=== PATIENT | female | born 1965 | race African-American/Black ===

== ENCOUNTER 2021-03-22 12:52 | Outpatient (REF) | payer MEDICARE, MEDICAID, SELFPAY | END 2021-03-22 12:53 | disposition home or self-care (01) | LOC: HO.LNP 12:52 | PROVIDERS: Visit Provider Internal Medicine Medical Oncology | DX: L02.91 Cutaneous abscess, unspecified (principal) | CPT/HCPCS: 87071; 87205 ==

== ENCOUNTER 2022-04-26 12:19 | Outpatient (REF) | payer MEDICARE, MEDICAID, SELFPAY ==
[2022-04-26 12:41] LABS: MANUAL DIFF FLAG NO
[2022-04-26 13:40] LABS: Basophils Absolute Auto 0.1 X10*3/uL (0.0-0.2); Basophils Percent Auto 0.7 % (0-2); Eosinophils Absolute Auto 0.1 X10*3/uL (0.0-0.4); Eosinophils Percent Auto 1.4 % (0-4); Hematocrit 45.5 % (37.0-47.0); Hemoglobin 14.5 g/dl (12.0-16.0); Imm Gran Abs Auto 0.03 X10*3/uL (0.00-0.03); Imm Gran Pct Auto 0.3 % (0.0-0.4); Lymphocytes Absolute Auto 3.2 X10*3/uL (1.2-4.9); Lymphocytes Percent Auto 35.5 % (20-40); Mean Corpuscular HGB Conc 31.9 g/dl (31.0-35.0); Mean Corpuscular Hemoglobin 25.8 pg (27.0-33.0); Mean Corpuscular Volume 81.1 fL (80.0-98.0); Mean Platelet Volume 12.4 fL (9.4-12.3); Monocytes Absolute Auto 0.8 X10*3/uL (0.1-1.2); Monocytes Percent Auto 8.2 % (2-11); Neutrophils Absolute Auto 4.9 x10*3/uL (2.0-8.3); Neutrophils Percent Auto 53.9 % (45-73); Platelet Count 268 X10*3/uL (160-400); Red Blood Count 5.61 X10*6/uL (4.20-5.50); Red Cell Distribution Width 15.2 % (11.0-16.0); White Blood Count 9.1 X10*3/uL (4.8-10.8)
[2022-04-26 14:03] LABS: Alanine Aminotransferase 141 U/L (0-31); Albumin Level 4.1 g/dL (3.5-5.0); Alkaline Phosphatase 549 U/L (39-117); Anion Gap 17 (12-20); Aspartate Amino Transferase 107 U/L (5-31); Bilirubin Total 0.3 mg/dL (0.0-1.0); Blood Urea Nitrogen 14 mg/dL (9-16); Calcium 10.2 mg/dL (8.4-10.2); Carbon Dioxide 26 mmol/L (22-29); Chloride 103 mmol/L (96-108); Cholesterol 359 mg/dL; Estimated Glomerular Filt Rate > 60; Glucose Random 83 mg/dL (60-115); HDL Cholesterol 99 mg/dL; LDL Cholesterol Calculated 227 mg/dl; Lactate Dehydrogenase 212 U/L (122-220); Potassium 3.8 mmol/L (3.3-5.1); Sodium 142 mmol/L (135-145); Total Protein 7.7 g/dL (6.5-8.0); Triglycerides 166 mg/dL
[2022-04-26 14:19] LABS: Erythrocyte Sedimentation Rate 34 MM/HR (0-20)
[2022-04-26 14:36] LABS: Gamma Glutamyl Transpeptidase 2104 U/L (7-33)
== END 2022-04-26 12:20 | disposition home or self-care (01) ==
LOC: HO.LAB 12:19
PROVIDERS: PCP Internal Medicine Medical Oncology; Visit Provider Internal Medicine Medical Oncology
DX: I10 Essential (primary) hypertension (principal); E78.5 Hyperlipidemia, unspecified; E66.9 Obesity, unspecified; K75.9 Inflammatory liver disease, unspecified
CPT/HCPCS: 36415; 80053; 80061; 82977; 83615; 85025; 85652; 87071; 87205

== ENCOUNTER → 2022-06-21 11:03 | Outpatient (BNVA) | payer MEDICARE, MEDICAID, SELFPAY | PROVIDERS: PCP Internal Medicine Medical Oncology; Visit Provider Internal Medicine | DX: R79.89 Other specified abnormal findings of blood chemistry (principal) | CPT/HCPCS: 99202 ==

== ENCOUNTER 2022-07-06 10:02 | Outpatient (REF) | payer MEDICARE, MEDICAID, SELFPAY ==
--- NOTE | ~2022-07-06 | US_ITS ---
EXAMINATION: US ABDOMEN COMPLETE CLINICAL INFORMATION: Other specified abnormal findings of blood chemistry. COMPARISON: None TECHNIQUE: Real-time imaging of the abdominal viscera. FINDINGS: PANCREAS: The pancreas is obscured by overlying gas. ABDOMINAL AORTA: The proximal abdominal aorta is of normal caliber. The mid and distal segment is not seen.. INFERIOR VENA CAVA: Visualized portions are normal. LIVER: The liver is enlarged measuring 14 cm with diffuse increased heterogeneous coarse echogenicity and nodular contour No focal hepatic lesion. There is no intrahepatic biliary duct dilatation seen. GALLBLADDER: Surgically absent. COMMON BILE DUCT: Normal in caliber measuring 0.4 cm in diameter. RIGHT KIDNEY: Normal. No hydronephrosis. No renal calculi or focal parenchymal lesions. The kidney measures 10.5 cm in maximum dimension. LEFT KIDNEY: Normal. No hydronephrosis. No renal calculi or focal parenchymal lesions. The kidney measures 9.7 cm in maximum dimension. SPLEEN: Normal. The spleen measures 9.8 cm in maximum dimension. FREE FLUID: None. US/US abdomen complete IMPRESSION: 1. Coarse echogenic nodular liver without any focal lesion. 2. The gallbladder has been surgically removed. 3. Rest of the abdominal ultrasound is unremarkable. 4. All the urinary in [place]
[2022-07-06 10:29] LABS: MANUAL DIFF FLAG NO
[2022-07-06 10:55] LABS: Basophils Percent Auto 0.4 % (0-2); Eosinophils Absolute Auto 0.1 X10*3/uL (0.0-0.4); Eosinophils Percent Auto 0.8 % (0-4); Hematocrit 45.9 % (37.0-47.0); Hemoglobin 14.7 g/dl (12.0-16.0); Imm Gran Abs Auto 0.02 X10*3/uL (0.00-0.03); Imm Gran Pct Auto 0.2 % (0.0-0.4); Lymphocytes Absolute Auto 3.5 X10*3/uL (1.2-4.9); Lymphocytes Percent Auto 38.4 % (20-40); Mean Corpuscular Hemoglobin 26.2 pg (27.0-33.0); Mean Corpuscular Volume 81.8 fL (80.0-98.0); Mean Platelet Volume 11.6 fL (9.4-12.3); Monocytes Absolute Auto 0.5 X10*3/uL (0.1-1.2); Monocytes Percent Auto 5.6 % (2-11); Neutrophils Absolute Auto 4.9 x10*3/uL (2.0-8.3); Neutrophils Percent Auto 54.6 % (45-73); Platelet Count 249 X10*3/uL (160-400); Red Blood Count 5.61 X10*6/uL (4.20-5.50)
[2022-07-06 10:59] LABS: Prothrombin Time 11.2 SEC (10.0-13.1)
[2022-07-06 11:18] LABS: Estimated Average Glucose 146 mg/dL; Hemoglobin A1c % 6.7 %
[2022-07-06 11:43] LABS: Alanine Aminotransferase 126 U/L (0-31); Albumin Level 4.1 g/dL (3.5-5.0); Alkaline Phosphatase 535 U/L (39-117); Anion Gap 15 (12-20); Aspartate Amino Transferase 78 U/L (5-31); Bilirubin Total 0.4 mg/dL (0.0-1.0); Blood Urea Nitrogen 10 mg/dL (9-16); Calcium 9.7 mg/dL (8.4-10.2); Carbon Dioxide 27 mmol/L (22-29); Chloride 103 mmol/L (96-108); Estimated Glomerular Filt Rate > 60; Gamma Glutamyl Transpeptidase 2011 U/L (7-33); Glucose Fasting 110 mg/dL (60-99); Sodium 141 mmol/L (135-145); Total Protein 7.4 g/dL (6.5-8.0)
[2022-07-06 11:45] LABS: Alanine Aminotransferase 126 U/L (0-31); Albumin Level 4.1 g/dL (3.5-5.0); Alkaline Phosphatase 533 U/L (39-117); Anion Gap 14 (12-20); Aspartate Amino Transferase 77 U/L (5-31); Bilirubin Direct 0.2 mg/dL (0.0-0.5); Bilirubin Total 0.4 mg/dL (0.0-1.0); Blood Urea Nitrogen 10 mg/dL (9-16); Calcium 9.7 mg/dL (8.4-10.2); Carbon Dioxide 28 mmol/L (22-29); Chloride 103 mmol/L (96-108); Cholesterol 319 mg/dL; Estimated Glomerular Filt Rate > 60; Glucose Random 112 mg/dL (60-115); HDL Cholesterol 91 mg/dL; Iron 124 mcg/dL (30-160); LDL Cholesterol Calculated 211 mg/dl; Percent Iron Saturation 34 % (15-50); Potassium 4.1 mmol/L (3.3-5.1); Sodium 141 mmol/L (135-145); Total Iron Binding Capacity 366 mcg/dL (228-428); Total Protein 7.4 g/dL (6.5-8.0); Triglycerides 87 mg/dL; Unsaturated Iron Binding 242 ug/dL
[2022-07-06 12:02] LABS: HBS Num1 6.96 mIU/mL (0-7.99); HBc Num1 8.24 S/CO (0.00-0.79); HBsAGNum1 0.19 S/CO (0.00-0.99); Hepatitis B Surface Antigen Negative (Negative); ~HepC Num1 0.05 S/CO (0.00-0.79); ~Hepatitis B Surface Antibody NONREACTIVE (Nonreactive); ~Hepatitis C Antibody Nonreactive (Nonreactive)
[2022-07-06 12:13] LABS: Ferritin 246 ng/mL (10-250)
[2022-07-06 14:28] LABS: Hepatitis A Antibody IgG REACTIVE (Nonreactive); ~Hepatitis A Antibody IgG 10.91 S/CO (0.00-0.99)
[2022-07-06 14:29] LABS: HBc Num2 8.45 S/CO; HBc Num3 8.58 S/CO; Hepatitis B Core Antibody Reactive (Nonreactive)
[2022-07-07 22:21] LABS: Hepatitis B Core Antibody IgM NON-REACTIVE (NON-REACTIVE)
[2022-07-08 13:32] LABS: Immunoglobulin A 233 mg/dL (47-310)
[2022-07-08 22:02] LABS: Transglutaminase IgA <1.0 U/mL
[2022-07-11 08:32] LABS: Smooth Muscle Antibody <20 U (<20)
[2022-07-12 08:06] LABS: Mitochondrial Antibodies NEGATIVE (NEGATIVE)
[2022-07-12 11:07] LABS: Anti Nuclear Antibody Screen NEGATIVE (NEGATIVE)
[2022-07-12 23:06] LABS: Liver Kidney Microsomal Ab <=20.0 U (<=20.0)
== END 2022-07-06 10:03 | disposition home or self-care (01) ==
LOC: HO.US 10:02
PROVIDERS: Absent Provider Internal Medicine Medical Oncology; PCP Internal Medicine Medical Oncology; Visit Provider Internal Medicine
DX: R79.89 Other specified abnormal findings of blood chemistry (principal); I10 Essential (primary) hypertension; E66.01 Morbid (severe) obesity due to excess calories; K75.9 Inflammatory liver disease, unspecified
CPT/HCPCS: 36415; 76700; 80053; 80061; 82248; 82728; 82784; 82977; 83036; 83540; 85025; 85610; 86015; 86038; 86039; 86255; 86256; 86364; 86376; 86704; 86705; 86706; 86708; 86803; 87340

== ENCOUNTER 2022-11-28 13:30 | Outpatient (REF) | payer MEDICARE, MEDICAID, SELFPAY ==
[2022-11-28 14:38] LABS: Hematocrit 46.2 % (37.0-47.0); Hemoglobin 14.9 g/dl (12.0-16.0); Mean Corpuscular HGB Conc 32.3 g/dl (31.0-35.0); Mean Corpuscular Hemoglobin 26.6 pg (27.0-33.0); Mean Corpuscular Volume 82.4 fL (80.0-98.0); Mean Platelet Volume 11.9 fL (9.4-12.3); Platelet Count 245 X10*3/uL (160-400); Red Blood Count 5.61 X10*6/uL (4.20-5.50); Red Cell Distribution Width 14.9 % (11.0-16.0); White Blood Count 9.2 X10*3/uL (4.8-10.8)
[2022-11-28 14:43] LABS: INTERNATIONAL NORM RATIO 0.9 (0.9-1.1); Prothrombin Time 10.8 SEC (10.0-13.1)
[2022-11-28 15:05] LABS: Alanine Aminotransferase 122 U/L (0-31); Albumin Level 4.1 g/dL (3.5-5.0); Alkaline Phosphatase 533 U/L (39-117); Aspartate Amino Transferase 74 U/L (5-31); Bilirubin Direct 0.1 mg/dL (0.0-0.5); Bilirubin Total 0.4 mg/dL (0.0-1.0); Total Protein 7.2 g/dL (6.5-8.0)
== END 2022-11-28 13:31 | disposition home or self-care (01) ==
LOC: HO.LAB 13:30
PROVIDERS: PCP Internal Medicine Medical Oncology; Visit Provider Internal Medicine
DX: E66.01 Morbid (severe) obesity due to excess calories (principal); I10 Essential (primary) hypertension; F17.210 Nicotine dependence, cigarettes, uncomplicated; R79.89 Other specified abnormal findings of blood chemistry; Z68.43 Body mass index [BMI] 50.0-59.9, adult
CPT/HCPCS: 36415; 80076; 85027; 85610; 99212

== ENCOUNTER 2023-02-27 10:11 | Outpatient (AMB) | payer MEDICARE, MEDICAID, SELFPAY ==
--- NOTE | 2023-02-27 10:15 | MHC.OFFVIS ---
Intake Vital Signs 02/27/23 10:17 Height 5 ft Weight 268 lb 15.423 oz BMI 52.5 BP 150/73 H Blood Pressure Location Lt radial Position Sitting Pulse 72 Intake Visit Reasons: 3 Month Follow Up Intake Note: Eliana presents in the office as a 3 month follow up today. CC: No concerns. Allergies No Known Allergies Allergy (Verified 02/27/23 10:17) HPI HPI Comments History of Present Illness Details This is a 57-year-old female with past medical history of morbid obesity, hypertension, family history of breast cancer, who presents to the office for follow up of elevated LFTs. 06/21/22: History obtained from the patient as well as the records from [facility]. Patient was seen at [facility] in 2019 for elevated LFTs at that time as well with dominant alk-phos elevation. It appears that patient then lost to follow-up. She also underwent a screening colonoscopy which was normal (cecal polyp on past showed normal mucosa, no adenoma) and was given a 10 year interval. Today, she comes and with no gastrointestinal complaints include abdominal pain, nausea, vomiting, bloating, increased abdominal distention, leg swelling, shortness of breath, rash or joint pains. Patient does not drink alcohol. No history of IV drug use. Smokes almost a pack a day. She does not report any family history of liver disease or liver cancer, iron overload, early pulmonary disease, early in neuropsychiatric illness, or autoimmune diseases. She takes Aleve on off for generalized body aches. She also drinks cleansing teas at least once a week, and has been doing this for years. She is not aware of the ingredients of the tea. 11/28/22: Missed last two follow ups due to transport issues. Today, no gastrointestinal complaints to include abd pain, N,V, change in bowel habits. Labs and US abd results reviewed and negative for chronic hep, autoimmune hepatitis, PBC, PSC, iron overload. US abd suggestive of advanced fibrosis/cirrhosis. Pt not able to do MRI despite ativan due to severe claustrophobia. 02/27/23: Reports had her MRI done with [facility] in December. Report reviewed - consistent with cirrhosis due to fatty infiltration. Also showed duodenal nodules measuring up to 1.1 cm in size. Pt currently has no gastrointestinal complaints. [facility] Medical History Hypertension Obesity, Class III, BMI 40-49.9 (morbid obesity) Surgical History Hx of colonoscopy Family History Father No problems noted. Mother Breast cancer HTN (hypertension) Social History Alcohol intake: never Patient Tobacco Use Status: Current everyday Tobacco user Cigarettes Per Day: 21 Physical Exam Vital Signs: Last Vital Signs Pulse 72 02/27/23 10:17 BP 150/73 H 02/27/23 10:17 BMI result Body Mass Index 52.5 Gen appear: NAD, with obesity HEENT: nonicteric, no cervical lymphadenopathy Chest: CTA CVS: Regular S1/S2 Abd: soft, nontender, nondistended, bowel sounds + Ext: no peripheral edema Neuro: A/Ox3, noted to move all extremities spontaneously Psych: interacting appropriately Assessment & Plan Assessment & Plan (1) Elevated LFTs: Code(s): R79.89 - Other specified abnormal findings of blood chemistry (2) Obesity, Class III, BMI 40-49.9 (morbid obesity): Code(s): E66.01 - Morbid (severe) obesity due to excess calories (3) Cirrhosis: Code(s): K74.60 - Unspecified cirrhosis of liver (4) Duodenal nodule: Code(s): K31.89 - Other diseases of stomach and duodenum Plan Longstanding history of elevated LFTs, with alk-phos predominance going back to at least 2007 on my review. MRI confirms cirrhosis, that was also suggested on US done recently. 2/2 MAFLD/HILL. This was extensively reviewed with the pt who initially said she was never informed of abnormal liver test, and then when she was reminded on initialy work up done at [facility] in 2019, said before 5 years she was not informed of any liver abnormality and has been healthy overall. We reviewed the natural evolution and progression of liver disease. I educated her that goal of management will be to avoid progression to decompensated liver cirrhosis, which in her case would be strict control of metabolic risk factors and weight loss of at least 10% total body weight. 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 Pt was also noted to have duodenal nodules on the MRI. Will shcedule EGD for both i) eval of duodenal nodules as well as ii) variceal screening. Pt had her colo in 2019 and was given a 10 year interval. - EGD to be booked as above. - Repeat LFTs and INR in 3 months (6 months from last labs) - Repeat US abd in Nov (6 months from last MRI) - Weight loss recommended as above - [facility] [employer] referral placed. Follow up after scope. Orders: Referrals Medical Nutrition Therapy Referral E66.01 - Morbid (severe) obesity due to excess calories Coding Level of Care Code Est Pt Level 5 (29840) Diagnoses Elevated LFTs R79.89 Obesity, Class III, BMI 40-49.9 (morbid obesity) E66.01 Cirrhosis K74.60 Duodenal nodule K31.89
[2023-02-27 10:17] VITALS: BP 150/73; PULSE 72; BMI 52.5
== END 2023-02-27 11:54 | disposition home or self-care (01) ==
LOC: HO.HGI 10:11
PROVIDERS: PCP Internal Medicine Medical Oncology; Visit Provider Internal Medicine
DX: R79.89 Other specified abnormal findings of blood chemistry (principal); E66.01 Morbid (severe) obesity due to excess calories; K74.60 Unspecified cirrhosis of liver; K31.89 Other diseases of stomach and duodenum
CPT/HCPCS: 99213

== ENCOUNTER → 2023-02-27 10:11 | Outpatient (BNVA) | payer MEDICARE, MEDICAID, SELFPAY | PROVIDERS: PCP Internal Medicine Medical Oncology; Visit Provider Internal Medicine | DX: R79.89 Other specified abnormal findings of blood chemistry (principal); K74.60 Unspecified cirrhosis of liver; K31.89 Other diseases of stomach and duodenum; E66.01 Morbid (severe) obesity due to excess calories; Z68.43 Body mass index [BMI] 50.0-59.9, adult | CPT/HCPCS: 99212 ==

== ENCOUNTER 2024-05-15 10:03 | Outpatient (REF) | payer MEDICARE, MEDICAID, SELFPAY ==
--- NOTE | ~2024-05-15 | XR_ITS ---
EXAMINATION: XR FOREARM, LEFT CLINICAL INFORMATION: Left arm pain COMPARISON: None available. TECHNIQUE: AP and lateral views of the left forearm were obtained. FINDINGS: The bones and soft tissues are normal. No fracture. Imaged portions of the elbow and wrist are unremarkable. XR/XR forearm LT 2V IMPRESSION: Normal left forearm. Electronically signed by: Jarek Kraus MD 06/17/2024 02:54 PM EDT RP
--- NOTE | ~2024-05-15 | XR_ITS ---
EXAMINATION: XR ELBOW, LEFT CLINICAL INFORMATION: Left arm pain COMPARISON: None available. TECHNIQUE: Four views of the left elbow. FINDINGS: The bones and soft tissues are normal. No fracture or joint effusion. Alignment is anatomic. Joint spaces are maintained. XR/XR elbow LT min 3V IMPRESSION: Normal left elbow. Electronically signed by: Jarek Kraus MD 06/17/2024 02:54 PM EDT RP
--- NOTE | ~2024-05-15 | XR_ITS ---
EXAMINATION: XR SHOULDER, LEFT CLINICAL INFORMATION: Left arm pain. COMPARISON: None available. TECHNIQUE: Four views of the left shoulder. FINDINGS: The bones and soft tissues are normal. No fracture. Glenohumeral and acromioclavicular alignment is anatomic with normal joint space. No abnormal soft tissue calcifications. XR/XR shoulder LT min 2V IMPRESSION: Normal left shoulder. Electronically signed by: Jarek Kraus MD 06/17/2024 02:55 PM EDT RP
--- NOTE | ~2024-05-15 | XR_ITS ---
EXAMINATION: XR HUMERUS, LEFT CLINICAL INFORMATION: Left arm pain COMPARISON: None available. TECHNIQUE: AP and lateral views of the left humerus. FINDINGS: The bones and soft tissues are normal. No fracture. Imaged portions of the shoulder and elbow are unremarkable. XR/XR humerus LT IMPRESSION: Normal left humerus. Electronically signed by: Jarek Kraus MD 06/17/2024 02:53 PM EDT
--- NOTE | ~2024-05-15 | XR_ITS ---
EXAMINATION: XR HAND/WRIST, LEFT CLINICAL INFORMATION: Left arm pain COMPARISON: None available. TECHNIQUE: PA, lateral, oblique, and scaphoid views of the left hand and wrist. FINDINGS: The bones and soft tissues are normal. No fracture. Alignment is anatomic. Joint spaces are maintained. No erosions or soft tissue calcifications. XR/XR hand wrist LT IMPRESSION: Normal radiographs of the hand and wrist. Electronically signed by: Jarek Kraus MD 06/17/2024 02:56 PM EDT
== END 2024-05-15 10:04 | disposition home or self-care (01) ==
LOC: HO.XRAY 10:03
PROVIDERS: PCP Internal Medicine Medical Oncology; Visit Provider Internal Medicine Medical Oncology
DX: M79.602 Pain in left arm (principal)
CPT/HCPCS: 73030; 73060; 73080; 73090; 73110; 73130

== ENCOUNTER 2025-08-04 14:52 | Outpatient (REF) | payer MEDICARE, MEDICAID, SELFPAY ==
--- OUTSIDE RECORDS SUMMARY | 2024-11-25 04:30 | XMS_ITS ---
Author Organization David Dinh III, MD Address [address] [address] Care Team Providers Care Boarding House Cook Name Role Phone Dr. David Dinh III Primary Care Provider Allergies Allergen (clinical drug ingredient) Drug/Non Drug Allergy documented on EMR Reaction Allergy Type Onset Date Status No Known Drug Allergy Unknown Drug Allergy Active Results Component Value Reference Range Notes URINE DIP STICK Reviewed date:11/25/2024 09:28:00 AM Interpretation: Performing Lab: Notes/Report: SG 1.015 1.005 - 1.025 pH 6.5 5.0 - 9.0 ARACELI Negative Negative - NIT Negative Negative - PRO 15 Negative - Trace GLU Negative Negative - KET Negative Negative - UBG 0.2 0.1 - 1.8 KODI Negative 0.2 - 1.3 BLD Negative Negative - Menstrating No GGT Reviewed date:12/03/2024 09:41:49 AM Interpretation: Performing Lab: Notes/Report: Lipid Panel Reviewed date:12/03/2024 09:41:58 AM Interpretation: Performing Lab: Notes/Report: Reason For Referral Reason Consult and Treat Diagnosis 1 Ankle pain (M25.579) Diagnosis 2 Pain in left wrist ( M25.532) Diagnosis 3 Wrist pain, right (M 25.531) Diagnosis 4 Hand pain, left (M79 .642) Diagnosis 5 Hand pain, right (M7 9.641) Diagnosis 6 Osteoporosis (M81.0) Referral Organization David Dinh III, MD Referring Provider First Name David Referring Provider Last Name Fabrizio Referring Provider Speciality Internal M edicine Referred Provider [facility] Referred Provider Specialty Orthopedic S urgery General Notes Kaya Durant 12/02/2024 01:12:56 PM > Referral faxed with progress note, patient has not went and had xr's done, Danny Johannajasmina MC 12/12/2024 09:45:05 AM >Ref/demo/progress note and recent labs faxed again to [facility] pt will call set up appt and call back to let us know when she will be seen, Kaya Durant 12/12/2024 09:55:58 AM > Patient called [facility] in which they stated they are 3 weeks behind next week and have not gotten to the referral and was advised to call back next week., Johanna Delgado CMA 01/20/2025 01:25:51 PM > Patient ended up going to [facility] urgent care on 12/27/2024 and was seen and treated Referral Priority Routine REASON FOR VISIT annual exam Medications Medication SIG (Take, Route, Frequency, Duration) Notes Start Date End Date Status Triamcinolone Acetonide 0.1 % 1 applicat ion Externally Twice a day 04/26/2022 Active Atorvastatin Calcium 20 MG 1 tablet Oral ly Once a day 03/22/2021 Active hydroCHLOROthiazide 25 MG TAKE 1 TABLET BY MOUTH ONCE DAILY IN THE MORNING WITH 8OZ OF ORANGE JUICE Oral Active Omeprazole 20 MG TAKE 1 CAPSULE BY MOUTH ONCE DAILY DIRECTED Orally Once a day Active Social History Tobacco Use: Social History Observation Description Date Details (start date - stop date) Current Smoker NA - NA Sex Assigned At : Social History Observation Description Sex Assigned At Female Tobacco Control (Standard) Question Answer Notes Tobacco use: Current smoker How often do you smoke cigarettes? Every day How many cigarettes a day do you smoke? 6-10 How soon after you wake up d o you smoke your first cigarette? 31-60 minutes Are you interested in quitting? Thinking about q uitting Additional Findings: Tobacco user Light cigarett e smoker (1-9 cigs/day) AUDIT-C (Standard) Question Answer Notes Did you have a drink containing alcohol in the p ast year? No Points 0 Interpretation Negative Problems Problem Type SNOMED Code ICD Code Onset Dates Problem Status W/U Status Risk Notes Problem Ankle pain (043584315) Ankle pain (M25.579) Active confirmed She has been having pain in her [place] ankle for a couple of weeks with weightbearing. There was pain to range of motion of the metatarsal bones. End of the left ankle joint today on the examination. An x-ray was ordered and she was referred to orthopedics. Vital Signs Temperature 97.3 degrees Fahrenheit 11/26/19 25 Blood pressure systolic 139 mm Hg 11/26/19 25 Blood pressure diastolic 79 mm Hg 025 Heart Rate 73 /min 11/25/2024 Height 61 in 11/25/2024 Weight 247 lbs 11/25/2024 BMI 46.67 kg/m2 11/25/2024 Encounters Encounter Location Date Provider Diagnosis David Dinh III, MD [address] [place] [address] [facility] [place] [address] 11/25/2024 David Dinh Other cirrhosis of l iver K74.69 ; Ankle pain M25.579 ; Other and unspecified hyperlipidemia E78.5 ; HTN (hypertension) I10 ; Migraines G43.909 ; Depression F32.9 ; Hidradenitis L73.2 ; Morbid obesity E66.01 ; Tobacco dependence F17.200 and Osteoporosis M81.0 Assessments Encounter Date Diagnosis (ICD Code) Assessment Notes Treat ment Notes Treatment Clinical Notes 11/25/2024 Other cirrhosis of liver (ICD-10 - K74.69) Her synthetic and excretory functions appear to be intact. There was no jaundice. Her liver edge was not palpable. Comprehensive blood work with liver function tests were ordered. We had a long discussion about weight loss. She continues to decline referral to an obesity treatment 11/25/2024 Ankle pain (ICD-10 - M25.579) She has been having pain in her [place] ankle for a couple of weeks with weightbearing. There was pain to range of motion of the metatarsal bones. End of the left ankle joint today on the examination. An x-ray was ordered and she was referred to orthopedics. 11/25/2024 Other and unspecifie d hyperlipidemia (ICD-10 - E78.5) A fasting lipid profile has been ordered. 11/25/2024 HTN (hypertension) (ICD-10 - I10) Her blood pressure is currently stable. She has been compliant with her medication. 11/25/2024 Migraines (ICD-10 - G43.909) She reports no recent migraines. She is taking no medication for this. 11/25/2024 Depression (ICD-10 - F32.9) Her depression is stable and mild she is compliant with her medications. She has been compliant with recent visits to mental health. 11/25/2024 Hidradenitis (ICD-10 - L73.2) The hidradenitis has substantially resolved and is no longer a problem for this patient. 11/25/2024 Morbid obesity (ICD-10 - E66.01) She remains morbidly obese. We discussed her diet. I have recommended aggressive calorie restriction and regular exercise. It is noted that she has lost 11 pounds since her last visit. He was encouraged to continue this. We discussed her weight loss strategy. 11/25/2024 Tobacco dependence (ICD-10 - F17.200) We discussed smoking cessation at length today. She is going to try to cut down by one cigarette per week. 11/25/2024 Osteoporosis (ICD-10 - M81.0) She was continued on her current regimen without change. A bone density has been ordered. Plan Of Treatment Medication Medication Name Sig Start Date Stop Date Notes Triamcinolone Acetonide 0.1 % 1 applicat ion Externally Twice a day 04/26/2022 Atorvastatin Calcium 20 MG 1 tablet Orally Once a day 09/2020 hydroCHLOROthiazide 25 MG TAKE 1 TABLET BY MOUTH ONCE DAILY IN THE MORNING WITH 8OZ OF ORANGE JUICE Oral Omeprazole 20 MG TAKE 1 CAPSULE BY [facility] ONCE DAILY DIRECTED Orally Once a day Pending Test Test Name Order Date PROFILE, FASTING (COMPREHENSIVE METABOLI C) 11/25/2024 CBC w DIFF 11/25/2024 XR HAND LT 11/25/2024 XR HAND RT 11/25/2024 XR ankle LT 2V 11/25/2024 XR wrist LT min 3V 11/25/2024 XR wrist RT min 3V 11/25/2024 Referrals Referral Date Details 11/25/2024 11/25/2024, Consult and Treat, [facility] Next Appt Details Follow Up: 2 Weeks, Reason: Telehealth Provider Name:David Dinh , 08/11/2025 03:00:00 PM, [address] [place] [address] [address], [place], [address], Provider Name:David Dinh , 11/27/2025 09:30:00 AM, [address] [place] [address] [address], [place], [phone], Progress Notes * Eliana KIM LDOB: [birth year] (59 yo F)Acc No.[id number]:11/25/2024 Progress Notes Patient: Eliana MARTIN Provider: Kimberli Dinh MD :1965 A ge:59 Y S ex:Female Date:11/25/2024 Address:[address] [place], [place] [id number] Subjective: * Chief Complaints: * A nnual exam * HPI: D epression Screening: She returns to the office at the age of 59 for her annual physical examination. Her last colonoscopy was in 2019 and she is due in 2028 for her next. She has been evaluated for abnormal liver function test byy gastroenterology at [facility] as well as [facility],. She has hepatic cirrhosis thought to be due to steatosis. I spoke with her today about aggressive weight loss be indicated. I offered to refer her to the bariatric surgery program at either [facility] or [facility], but she declined. She continues to smoke a package of cigarettes per day. She is unwilling to stop smoking.? She thinks it keeps her from gaining weight. She declined to go to a smoking cessation program. She says she feels healthy and well. Her vital signs were stable. Her examination today showed no new findings. I will continue to work with her to improve her understanding of the necessity for both weight loss, and smoking cessation. She will be followed by gastroenterology at [facility] as well.Comprehensive blood work including liver function tests was ordered today. A new complaint is pain in her left ankle which she says makes it hard to walk as well as pain in the fingers of both hands. I have ordered x-rays of the hands and the ankle and referred her to orthopedics for the ankle problem. Examination thank her hip pain with range of motion of the ankle joint in the metatarsal joints. PHQ-9 L ittle interest or pleasure in doing things?Several days F eeling down, depressed, or hopeless S everal days T rouble falling or staying asleep, or sleeping too much M ore than half the days F eeling tired or having little energy N early every day P oor appetite or overeating N ot at all F eeling bad about yourself or that you are a failure, or have let yourself or your family down N ot at all T rouble concentrating on things, such as reading the newspaper or watching television M ore than half the days M oving or speaking so slowly that other people could have noticed; or the opposite, being so fidgety or restless that you have been moving around a lot more than usual N ot at all T houghts that you would be better off or of hurting yourself in some way N ot at all T otal Score 9 I nterpretation M ild Depression C OVID-19 Screenin cigs. Questions H ave you had any new onset fever, chills, cough, congestion, sore throat, shortness of breath, muscle aches? N o S YANELI Questions: SDOH Questions I n the past year have you or any family members you live with been unable to get any of the following when it was really needed? Check all that apply: D ecline to answer * ROS: G eneral/Constitutional: pain F ingers of both hands, both wrists and left ankle with use. C hills d enies. F atigue a dmits. F ever d enies. E NT: Decreased hearing d enies. R espiratory: Cough n on-productive. C ardiovascular: Chest pain with exertion d enies. D yspnea on exertion?denies. S hortness of breath d enies. G astrointestinal: Constipation o ccasional. D ecreased appetite d enies. D iarrhea d enies. H eartburn d enies. N ausea d enies. R ectal bleeding d enies. V omiting d enies. H ematology: bruising d enies. p etechiae d enies. S wollen glands n one have been noted. G enitourinary: Frequent urination d enies. M usculoskeletal: Muscle aches d enies. P ainful joints H ands and left foot. S ciatica d enies. W eakness d enies. S kin: Itching d enies. R caryn d enies. S kin lesion(s)?denies. N eurologic: Difficulty speaking d enies. D izziness d enies.?Headache d enies. L ow back pain d enies. P sychiatric: Depressed mood d enies. * Medical History: * Surgical History: t onsillectomy and adenoidectomy cholecystectomy OSWALDO/BSO ovarian cystectomy 1995negative biopsy right breast 09/2015 * Hospitalization/Major Diagno stic Procedure: o varian cystectomy 1995hysterectomy 2004 * Family History: F ather: . M other: , diagnosed with Cancer, HTN. 1 brother(s) , 1 sister(s) . . Her mother had invasive breast cancer. * Social History: T obacco Use: T obacco Control (Standard) T obacco use: C urrent smoker H ow often do you smoke cigarettes? E very day H ow many cigarettes a day do you smoke? 6 -10 H ow soon after you wake up do you smoke your first cigarette? 3 1-60 minutes A re you interested in quitting? T hinking about quitting A dditional Findings: Tobacco user L ight cigarette smoker (1-9 cigs/day) D rugs/Alcohol: D rugs H ave you used drugs other than those for medical reasons in the past 12 months? N o D rug/Alcohol: A GABRIELLA-C (Standard) D id you have a drink containing alcohol in the past year? N o P oints 0 I nterpretation N egative * Medications: T akingOmeprazole 20 MG Capsule Delayed Release TAKE 1 CAPSULE BY MOUTH ONCE DAILY DIRECTED Orally Once a day Atorvastatin Calcium 20 MG Tablet 1 tablet Orally Once a day hydroCHLOROthiazide 25 MG Tablet TAKE 1 TABLET BY MOUTH ONCE DAILY IN THE MORNING WITH 8OZ OF ORANGE JUICE Oral Triamcinolone Acetonide 0.1 % Cream 1 application Externally Twice a day Medication List reviewed and reconciled with the patientTaking Omeprazole 20 MG Capsule Delayed Release TAKE 1 CAPSULE BY MOUTH ONCE DAILY DIRECTED Orally Once a day Taking Atorvastatin Calcium 20 MG Tablet 1 tablet Orally Once a day Taking hydroCHLOROthiazide 25 MG Tablet TAKE 1 TABLET BY MOUTH ONCE DAILY IN THE MORNING WITH 8OZ OF ORANGE JUICE Oral Taking Triamcinolone Acetonide 0.1 % Cream 1 application Externally Twice a day Medication List reviewed and reconciled with the patient * Allergies: N o Known Drug Allergyno[Allergies Verified] Objective: * Vitals: H t: 61, Wt: 247, BMI:46.67, BP: 139/79, HR: 73, Temp: 97.3, Wt-k.04. * Examination: G eneral Examination: GENERAL APPEARANCE: p gerald, well nourished, well developed, in no acute distress, calm and relaxed, morbidly obese, woman. HEAD: a traumatic, normocephalic. EYES: e chica, perrla, anicteric, conjugate. EARS: n ormal. NOSE: s eptum intact. ORAL CAVITY: n ormal, unremarkable. NECK/THYROID: n o jugular venous distention, no carotid bruit, thyroid normal. LYMPH NODES: n o enlarged lymph nodes,spleen normal. SKIN: n o suspicious lesions, anicteric. HEART: n o clicks, gallops, murmurs, or rubs, regular rhythm, S1, S2 normal, no s3, or vascular bruits. LUNGS: c lear to auscultation . BREASTS: n o masses palpable bilaterally, no drainage, no discharge, no dimpling, nontender, symmetrical, Healed scars skin of both breasts from infections in the past. ABDOMEN: b owel sounds normal, no ascites, no organomegaly, no mass, morbid obesity. RECTAL EXAM: n ot examined. MUSCULOSKELETAL: e xtremities unremarkable, no clubbing, cyanosis or edema, Both hands, wrists and left ankle appear normal for her painful to range of motion.? PERIPHERAL PULSES: n ormal. NEUROLOGIC: a lert and oriented, cranial nerves 2-12 grossly intact, deep tendon reflexes 2+ symmetrical, motor strength normal upper and lower extremities, sensory exam intact. PSYCH: a lert, oriented. Assessment: * Assessment: 1. O ther cirrhosis of liver - K74.69 (Primary) N otes :Her synthetic and excretory functions appear to be intact. There was no jaundice. Her liver edge was not palpable. Comprehensive blood work with liver function tests were ordered. We had a long discussion about weight loss. She continues to decline referral to an obesity treatment 2 . A nkle pain - M25.579 N otes :She has been having pain in her [place] ankle for a couple of weeks with weightbearing. There was pain to range of motion of the metatarsal bones. End of the left ankle joint today on the examination. An x-ray was ordered and she was referred to orthopedics. 3 . O ther and unspecified hyperlipidemia - E78.5 N otes :A fasting lipid profile has been ordered. 4 . H TN (hypertension) - I10 N otes :Her blood pressure is currently stable. She has been compliant with her medication. 5 . M igraines - G43.909 N otes :She reports no recent migraines. She is taking no medication for this. 6 . D epression - F32.9 N otes :Her depression is stable and mild she is compliant with her medications. She has been compliant with recent visits to mental health. 7 . H idradenitis - L73.2 N otes :The hidradenitis has substantially resolved and is no longer a problem for this patient. 8 . M orbid obesity - E66.01 N otes :She remains morbidly obese. We discussed her diet. I have recommended aggressive calorie restriction and regular exercise. It is noted that she has lost 11 pounds since her last visit. He was encouraged to continue this. We discussed her weight loss strategy. 9 . T obacco dependence - F17.200 N otes :We discussed smoking cessation at length today. She is going to try to cut down by one cigarette per week. 1 0. O steoporosis - M81.0 N otes :She was continued on her current regimen without change. A bone density has been ordered. Plan: * Treatment: 2. A nkle pain I maging: XR HAND LT I maging: XR HAND RT I maging: XR ankle LT 2V I maging: XR wrist LT min 3V I maging: XR wrist RT min 3V [facility]erral To:[facility] Reason:Consult and Treat 3. O steoporosis Referral To:[facility] Reason:Consult and Treat 4. O thers Continue Omeprazole Capsule Delayed Release, 20 MG, TAKE 1 CAPSULE BY MOUTH ONCE DAILY DIRECTED, Orally, Once a day. Referral To:[facility] Reason:Consult and Treat * Labs: * L ab: URINE DIP STICK (Collection Date & Time - 11/25/2024) Value Reference Range S G 1.015 1.005 - 1.025 * p H 6.5 5.0 - 9.0 * L EU Negative Negative - * N IT Negative Negative - * P RO 15 Negative - Trace * G CHELLY Negative Negative - * K ET Negative Negative - * U BG 0.2 0.1 - 1.8 * B IL Negative 0.2 - 1.3 * B LD Negative Negative - * M enstrating No * Procedure Codes: 8 1002 URINE-NO MICRO * Preventive Medicine: Counseling: C are goal follow-up plan: Counseling for abnormal BMI given Y es Above Normal BMI Follow-up D ietary management education, guidance, and counseling, Dietary needs education, Exercise promotion: strength training, Exercise promotion: stretching, Feeding regime, Giving encouragement to exercise, Lifestyle education regarding diet, Nutrition / feeding management, Nutrition therapy, Prescribed activity/exercise education, Prescribed diet education, Prescribed dietary intake, Special diet education, Weight monitoring , Intervention, Order not done: Medical or Other reason not done S moking/Tobacco Use Patient counseled on the dangers of tobacco use and urged to quit. 0 11/25/2024 Patient Lifestyle Goals P atient does not want to quit Treatment Goals S et a quit date, Cut down by 1 cigarette a week Barriers S tress, Social smoker Self-Management Plan M dmitry a plan to cut down number of cigarettes over time and set a date to work towards quitting * Follow Up: 2 Weeks (Reason: Telehealth) * Images: * Sign off status: Completed true * Provider: Kimberli Dinh MD Date: 0 11/25/2024 Generated for Teena pascal/Lionel/Muraliransmitting on: 1 10/05/2024 09:25 PM EST History and Physical Notes * HPI (History of Present Illness) Category Sub-Category Detail Notes Depression Screening PHQ-9 Little inte rest or pleasure in doing things: Several days Feeling down, depressed, or hopeless: Se veral days Trouble falling or staying a sleep, or sleeping too much: More than half the days Feeling tired or having little energy: N early every day Poor appetite or overeating: Not at all Feeling bad about yourself o r that you are a failure, or have let yourself or your family down: Not at all Trouble concentrating on thi ngs, such as reading the newspaper or watching television: More than half the days Moving or speaking so slowly that other people could have noticed; or the opposite, being so fidgety or restless that you have been moving around a lot more than usual: Not at all Thoughts that you would be b shanae off or of hurting yourself in some way: Not at all Total Score: 9 Interpretation: Mild Depression COVID-19 Screening Questions Have you had any new onset fever, chills, cough, congestion, sore throat, shortness of breath, muscle aches?: No SDOH Questions SDOH Questions In the past year have you or any family members you live with been unable to get any of the following when it was really needed? Check all that apply:: Decline to answer Examination Category Sub-Category Detail Notes General Examination GENERAL APPEARANCE: pleasant , well nourished, well developed, in no acute distress, calm and relaxed, morbidly obese, woman HEAD: atraumatic, normocep halic EYES: eomi, perrla, anicte maikel, conjugate EARS: normal NOSE: septum intact NECK/THYROID: no jugular venous di stention, no carotid bruit, thyroid normal HEART: no clicks, gallops, murmurs, or rubs, regular rhythm, S1, S2 normal, no s3, or vascular bruits LUNGS: clear to auscultatio n ABDOMEN: bowel sounds normal, no ascites, no organomegaly, no mass, morbid obesity NEUROLOGIC: alert and oriented, cranial nerves 2-12 grossly intact, deep tendon reflexes 2+ symmetrical, motor strength normal upper and lower extremities, sensory exam intact SKIN: no suspicious lesion s, anicteric PERIPHERAL PULSES: normal BREASTS: no masses palpable b ilaterally, no drainage, no discharge, no dimpling, nontender, symmetrical, Healed scars skin of both breasts from infections in the past MUSCULOSKELETAL: extremities unremark able, no clubbing, cyanosis or edema, Both hands, wrists and left ankle appear normal for her painful to range of motion LYMPH NODES: no enlarged lymph no trell,spleen normal RECTAL EXAM: not examined PSYCH: alert, oriented ORAL CAVITY: normal, unremarkable Consultation Request Notes Referral Date Referring Provider Referred Provider Not ely 11/25/2024 Fabrizio [facility] jaswant CECILIA, [facility] Consult and Treat
--- OUTSIDE RECORDS SUMMARY | 2024-12-12 04:30 | XMS_ITS ---
Author Organization David Dinh III, MD Address [address] [place] [address] Care Team Providers Care Patients Transporter Name Role Phone Dr. 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, Hyperlipidemia, Hypertension, Depression, Hidradenitis, Morbid obesity, Tobacco dependence, Osteoporosis, left medial ankle pain Medications Medication SIG (Take, Route, Frequency, Duration) Notes Start Date End Date Status Triamcinolone Acetonide 0.1 % 1 applicat ion Externally Twice a day 04/26/2022 Active Atorvastatin Calcium 20 MG 1 tablet Oral ly Once a day 03/22/2021 Active Atorvastatin Calcium 40 MG 1 tablet Oral ly Once a day for 30 days 12/12/2024 Active Omeprazole 20 MG TAKE 1 CAPSULE BY MOUTH ONCE DAILY DIRECTED Orally Once a day Active metFORMIN HCl 500 MG 1 tablet with a toni l Orally Once a day for 30 days 12/12/2024 Active hydroCHLOROthiazide 25 MG TAKE 1 TABLET BY MOUTH ONCE DAILY IN THE MORNING WITH 8OZ OF ORANGE JUICE Oral Active Social History Tobacco Use: Social History [...] user Light cigarett e smoker (1-9 cigs/day) Problems Problem Type SNOMED Code ICD Code Onset Dates Problem Status W/U Status Risk Notes Problem [id number] Closed fracture of left ankle, initial encounter (S82.892A) Active confirmed She has a chip fracture each ankle. I have sent her to orthopedics for recommendations for treatment Vital Signs Blood pressure systolic 128 mm Hg 12/13/19 25 Blood pressure diastolic 74 mm Hg 025 Height 61 in 12/12/2024 Weight 247 lbs 12/12/2024 BMI 46.67 kg/m2 12/12/2024 Encounters Encounter Location Date Provider Diagnosis David Dinh III, MD [address] [place] [address] [place] [address] 12/12/2024 David Dinh Other cirrhosis of liver K74.69 ; Closed fracture of left ankle, initial encounter S82.892A ; HTN (hypertension) I10 ; Depression F32.9 ; Migraines G43.909 ; Morbid obesity E66.01 ; Osteoporosis M81.0 and Tobacco dependence F17.200 Assessments Encounter Date Diagnosis (ICD Code) Assessment Notes Treatment Notes Treatment Clinical Notes 12/12/2024 Other cirrhosis of liver (ICD-10 - K74.69) Her synthetic and excretory functions appear to be intact. There was no jaundice. Her liver edge was not palpable. Comprehensive blood work with liver function tests were ordered. We had a long discussion about weight loss. She continues to decline referral to an obesity treatment 12/12/2024 Closed fracture of left ankle, initial encounter (ICD-10 - S82.892A) She has a chip fracture each ankle. I have sent her to orthopedics for recommendations for treatment 12/12/2024 HTN (hypertension) (ICD-10 - I10) Her blood pressure is currently stable. She has been compliant with her medication. 12/12/2024 Depression (ICD-10 - F32.9) Her depression is stable and mild she is compliant with her medications. She has been compliant with recent visits to mental health. 12/12/2024 Migraines (ICD-10 - G43.909) She reports no recent migraines. She is taking no medication for this. 12/12/2024 Morbid obesity (ICD-10 - E66.01) She remains morbidly obese. We discussed her diet. I have recommended aggressive calorie restriction and regular exercise. It is noted that she has lost 11 pounds since her last visit. He was encouraged to continue this. We discussed her weight loss strategy. 12/12/2024 Osteoporosis (ICD-10 - M81.0) She was continued on her current regimen without change. A bone density has been ordered. 12/12/2024 Tobacco dependence (ICD-10 - F17.200) We discussed smoking cessation at length today. She is going to try to cut down by one cigarette per week. Plan Of Treatment Medication Medication Name Sig Start Date Stop Date Notes Triamcinolone Acetonide 0.1 % 1 applicat ion Externally Twice a day 04/26/2022 Atorvastatin Calcium 20 MG 1 tablet Orally Once a day 09/2020 Atorvastatin Calcium 40 MG 1 tablet Oral ly Once a day for 30 days 12/12/2024 Omeprazole 20 MG TAKE 1 CAPSULE BY [facility] ONCE DAILY DIRECTED Orally Once a day metFORMIN HCl 500 MG 1 tablet with a toni l Orally Once a day for 30 days 12/12/2024 hydroCHLOROthiazide 25 MG TAKE 1 TABLET BY MOUTH ONCE DAILY IN THE MORNING WITH 8OZ OF ORANGE JUICE Oral Pending Test Test Name Order Date PROFILE, FASTING (COMPREHENSIVE METABOLI C) 12/12/2024 CBC w DIFF 12/12/2024 Lipid Panel 12/12/2024 Microalbumin, Random 12/12/2024 Hemoglobin A1c 12/12/2024 Next Appt Details Follow Up: 3 Weeks, Reason: ov Provider Name:David Dinh , 08/11/2025 03:00:00 PM, [address], [place], [id number], Provider Name:David Dinh , 11/27/2025 09:30:00 AM, [address] [place] [address] [address], [place], [address], Progress Notes * Eliana KIM LDOB: [birth year] (59 yo F)Acc No.[id number]:12/12/2024 Patient: Eliana MARTIN Provider: Kimberli Dinh MD :1965 A ge:59 Y S ex:Female Date:12/12/2024 Address:[address] [place] [id number] Subjective: * Chief Complaints: * C irrhosis of the liver secondary to NASHHyperlipidemiaHypertensionDepressionHidradenitisMorbid obesityTobacco dependenceOsteoporosisLeft medial ankle pain * HPI: * : She returns to review her blood work and x-rays. Her glucose level was 300. Diabetes is a new diagnosis for this patient. She was begun on 500 mg a day. She is willing to try it. I discussed with her having annual ophthalmoology exams. She is taking a statin. Her cholesterol was approximately 400 so I increased the dose from 20 up to 40 mg a day. Close follow-up was arranged. Her blood work done recently shows SGOT 83 SGPT 139 alkaline phosphatase 765 GGT 3813 glucose 300 BUN 9 creatinine 1.0 cholesterol 431 triglycerides 135 8 still 97 LDL 307. X-rays of the right ankle show a 3.7 mm chip near the medial malleolus which is minimally displaced consistent with an avulsion fracture. Left ankle has a 3.8 mm chip adjacent to the medial malleolus as well. Only the right ankle is painful we discussed all of these findings. Because of the pain in the left ankle and refer to orthopedics. The hemoglobin A1c and repeat fasting lipid profile in 3 weeks.Her cirrhosis in the gastroenterology department at [facility] is thought to be secondary to steatosis and Oneal. Telehealth L ocation of provider rendering services: { ...} [address] [facility] [address] L ocation of patient: keny ddress listed in demographics for today's visit P atient identification confirmed using: RADHA Strauss ame T elehealth method: T elephone only. Patient not visible to care provider. C onsent: P atient verbally consented to treatment, Patient verbally consented to billing insurance company, Patient informed of any privacy concerns related to method of visit T tom time spent with patient (mins) 1 5 * ROS: G eneral/Constitutional: pain R ight ankle. C hills d enies. F atigue?admits. F ever d enies. E NT: Decreased hearing d enies. R espiratory: Cough d enies. C ardiovascular: Chest pain with exertion d enies. D yspnea on exertion?denies. S hortness of breath w ith exertion. G astrointestinal: Constipation d enies. D ecreased appetite d enies.?Diarrhea d enies. H eartburn d enies. N ausea d enies. R ectal bleeding?denies. V omiting d enies. H ematology: bruising d enies. p etechiae d enies. S wollen glands n one have been noted. G enitourinary: Frequent urination a t night. M usculoskeletal: Muscle aches d enies. P ainful joints d enies. S ciatica d enies. W eakness d enies. S kin: Itching d enies. R caryn d enies. S kin lesion(s)?denies. N eurologic: Difficulty speaking d enies. D izziness d enies.?Headache d enies. L ow back pain d enies. P sychiatric: Depressed mood w hich is mild. * Medical History: * Surgical History: t onsillectomy and adenoidectomy cholecystectomy OSWALDO/BSO ovarian cystectomy 1995negative biopsy right breast 09/2015 * Hospitalization/Major Diagno stic Procedure: o varian cystectomy 1995hysterectomy 2004 * Family History: F ather: . M other: , diagnosed with HTN, Cancer. 1 brother(s) , 1 sister(s) . . [...] user L ight cigarette smoker (1-9 cigs/day) * Medications: T akingOmeprazole 20 MG Capsule [...] H t: 61, Wt: 247, BMI:46.67, BP: 128/74, Ht-cm: 154.94, Wt-k.04. * P ast Orders: Lab:URINE DIP STICK * Collection Date 11/25/2024 04/26/2022 08/05/2015 Collection Time 11:49 AM Order Date 11/25/2024 04/26/2022 08/05/2015 Result: Normal SG 1.015 (Ref Range: 1.005 - 1.025) 1.015 1.025 pH 6.5 (Ref Range: 5.0 - 9.0) 6.5 5 ARACELI Negative (Ref Range: Negative -) neg ++ NIT Negative (Ref Range: Negative -) neg positive PRO 15 (Ref Range: Negative - Trace) trace trace GLU Negative (Ref Range: Negative -) nromal neg KET Negative (Ref Range: Negative -) neg neg UBG 0.2 (Ref Range: 0.1 - 1.8) neg normal KODI Negative (Ref Range: 0.2 - 1.3) neg ++ BLD Negative (Ref Range: Negative -) neg trace Menstrating No no no * Lab:Lipid Panel * Collection Date 12/03/2024 07/06/2022 04/26/2022 Collection Time 10:29 AM 12:39 PM Order Date 11/25/2024 07/06/2022 04/26/2022 Triglycerides NR 87 (Ref Range: mg/dL) 166 (Ref Range: mg/dL) Cholesterol NR 319 (Ref Range: mg/dL) 359 (Ref Range: mg/dL) LDL Cholesterol Calculated NR 211 (Ref Range: mg/dl) 227 (Ref Range: mg/dl) HDL Cholesterol NR 91 (Ref Range: mg/dL) 99 (Ref Range: mg/dL) Clinical Info: Please fast for 12-1 4 hours prior to having this labwork done. You may have black coffee or tea with no milk or sugar. May have water,PLEASE FAX COMPLETED RESULTS TO [phone] * Lab:GGT * Collection Date 12/03/2024 2022 Order Date 11/25/2024 08/09/2021 Clinical Info: Please fast for 12-1 4 hours prior to having this labwork done. You may have black coffee or tea with no milk or sugar. May have water,PLEASE FAX COMPLETED RESULTS TO [phone] Assessment: * Assessment: 1. O ther cirrhosis of liver - K74.69 (Primary) N otes :Her synthetic and excretory functions appear to be intact. There was no jaundice. Her liver edge was not palpable. Comprehensive blood work with liver function tests were ordered. We had a long discussion about weight loss. She continues to decline referral to an obesity treatment 2 . C losed fracture of left ankle, initial encounter - M76.083G ?Notes :She has a chip fracture each ankle. I have sent her to orthopedics for recommendations for treatment 3 . H TN (hypertension) - I10 N otes :Her blood pressure is currently stable. She has been compliant with her medication. 4 . D epression - F32.9 N otes :Her depression is stable and mild she is compliant with her medications. She has been compliant with recent visits to mental health. 5 . M igraines - G43.909 N otes :She reports no recent migraines. She is taking no medication for this. 6 . M orbid obesity - E66.01 N otes :She remains morbidly obese. We discussed her diet. I have recommended aggressive calorie restriction and regular exercise. It is noted that she has lost 11 pounds since her last visit. He was encouraged to continue this. We discussed her weight loss strategy. 7 . O steoporosis - M81.0 N otes :She was continued on her current regimen without change. A bone density has been ordered. 8 . T obacco dependence - F17.200 N otes :We discussed smoking cessation at length today. She is going to try to cut down by one cigarette per week. 12/02/2024 ref/demo/progress note faxed to [facility] ortho dept . 12-12-2024 ref/demo/progress notes and x ray reports again (second time)faxed to [facility] ortho dept pt advised to call to set up appt . Plan: * Treatment: 2. C losed fracture of left ankle, initial encounter L AB: PROFILE, FASTING (COMPREHENSIVE METABOLIC) L AB: CBC w DIFF L AB: Lipid Panel L AB: Microalbumin, Random L AB: Hemoglobin A1c 3. H TN (hypertension) L AB: PROFILE, FASTING (COMPREHENSIVE METABOLIC) L AB: CBC w DIFF L AB: Lipid Panel L AB: Microalbumin, Random L AB: Hemoglobin A1c 4. O thers Continue Omeprazole Capsule Delayed Release, 20 MG, TAKE 1 CAPSULE BY MOUTH ONCE DAILY DIRECTED, Orally, Once a day. * Procedure Codes: * Preventive Medicine: Counseling: C are goal [...] tobacco use and urged to quit. 0 12/12/2024 Patient Lifestyle Goals P atient wants to quit Treatment Goals S et a quit date Barriers S tress, Social smoker Self-Management Plan M dmitry a plan to cut down number of cigarettes over time and set a date to work towards quitting DM Care Plan: P atient Lifestyle Goals P atient wants to be able to manage diabetes without too much effort. T reatment Goals B lood Sugars less than < 115, HbA1C < 7.0. B arriers n o barriers. S elf-Managment Goals W ork on weight loss, with a goal of losing 1 lb per week. * Follow Up: 3 Weeks (Reason: ov) * Images: * Sign off status: Completed true * Provider: Kimberli Dinh MD Date: 0 12/12/2024 Generated for Teena pascal/Lionel/Loboitting on: 1 10/05/2024 09:25 PM EST History and Physical Notes * HPI (History of Present Illness) Category Sub-Category Detail Notes Telehealth Location of [facility] rendering services:: {...} [address] [place] [address] [place] [id number] Location of patient:: address listed in demographics for today's visit Patient identification confirmed using:: Name, Telehealth method:: Telephone only. Sharon ent not visible to care provider. Consent:: Patient verbally c onsented to treatment, Patient verbally consented to billing insurance company, Patient informed of any privacy concerns related to method of visit Total time spent with patient (mins): 15
--- OUTSIDE RECORDS SUMMARY | 2024-12-19 04:47 | XMS_ITS ---
Author Organization David Dinh III, MD Address [address] [place] [address] [place] [address] Care Team Providers Care Layup Worker Name Role Phone Dr. David Dinh III Primary Care Provider [phone] REASON FOR VISIT Message Social History Sex Assigned At : Social History Observation Description Sex Assigned At Female Encounters Encounter Location Date Provider Diagnosis David Dinh III, MD [address] [place] [address] [place] [address] 12/19/2024 David Dinh Plan Of Treatment Next Appt Details Provider Name:David Dinh , 08/11/2025 03:00:00 PM, [address] [place] [address] [place], [address], Provider Name:David Dinh , 11/27/2025 09:30:00 AM, [address] [place] [address] [place], [address], Progress Notes * Eliana KIM LDOB: [birth year] (59 yo F)Acc No.[id number]:12/19/2024 Patient: Eliana MARTIN :1965 A ge:59 Y S ex:Female Address:[address] [place] [phone] * true * Date: Generated for Teena pascal/Lionel/Maria on: 10/05/2024 09:24 PM EST
--- OUTSIDE RECORDS SUMMARY | 2025-01-09 05:00 | XMS_ITS ---
Author Organization David Dinh III, MD Address [address] [place] [address] Care Team Providers Care Lawnmower Mechanic Name Role Phone Dr. David Dinh III Primary Care Provider Allergies Allergen (clinical drug ingredient) Drug/Non Drug Allergy documented on EMR Reaction Allergy Type Onset Date Status No Known Drug Allergy Unknown Drug Allergy Active REASON FOR VISIT Normal liver tests, Obesity, Hyperlipidemia, Depression, Fracture left ankle, Diabetes Medications Medication SIG (Take, Route, Frequency, Duration) Notes Start Date End Date Status Atorvastatin Calcium 40 MG 1 tablet Oral ly Once a day 12/12/2024 Active Gauze Pads 2 X2 use to check blood sugars Mondays , Wednesdays and Fridays for 30 days DX: Diabetes E11.9 01/09/2025 Active Lancets 30G - use to check blood sugars Monday, Monday and Monday for 30 days DX: Diabetes E11.9 01/09/2025 Active metFORMIN HCl 500 MG 1 tablet with a meal Orally Once a day 12/12/2024 Active Alcohol Prep 70 % use to check blood sugars Mondays, Wednesdays and Fridays for 30 days DX: Diabetes E11.9 01/09/2025 Active hydroCHLOROthiazide 25 MG TAKE 1 TABLET BY MOUTH ONCE DAILY IN THE MORNING WITH 8OZ OF ORANGE JUICE Oral Active Omeprazole 20 MG TAKE 1 CAPSULE BY MOUTH ONCE DAILY DIRECTED Orally Once a day Active Triamcinolone Acetonide 0.1 % 1 application Externally Twice a day 04/26/2022 Active Contour Next Test - use to check blood sugars Mondays, Wednesdays and Fridays In Vitro Mondays,Wednesdays ,Fridays for 30 days DX: Diabetes E11.9 01/09/2025 Active Contour Next Gen Monitor w/Device use to check blood sugars on Mondays,Wednesdays and Fridays for 30 days DX: Diabetes E11.9 01/09/2025 Active Atorvastatin Calcium 20 MG 1 tablet Oral ly Once a day 03/22/2021 Active Social History Tobacco Use: Social History [...] Problem Status W/U Status Risk Notes Problem [id number] Type 2 diabetes mellitus without complication , without long-term current use of insulin (E11.9) Active confirmed He is toleratin g the metformin well. Comprehensive blood work with a fasting glucose has been ordered. Vital Signs Temperature 97.8 degrees Fahrenheit 01/10/20 25 Blood pressure systolic 132 mm Hg 01/10/20 25 Blood pressure diastolic 79 mm Hg 025 Heart Rate 75 /min 01/09/2025 Height 61 in 01/09/2025 Weight 237 lbs 01/09/2025 BMI 44.78 kg/m2 01/09/2025 Oximetry 97 % 01/09/2025 Encounters Encounter Location Date Provider Diagnosis David Dinh III, MD [address] [place] [address] [place], [place] [address] 01/09/2025 David Dinh Other cirrhosis of l iver K74.69 ; Morbid obesity E66.01 ; Other and unspecified hyperlipidemia E78.5 ; HTN (hypertension) I10 ; Type 2 diabetes mellitus without complication, without long-term current use of insulin E11.9 ; Depression F32.9 ; Migraines G43.909 and Osteoporosis M81.0 Assessments Encounter Date Diagnosis (ICD Code) Assessment Notes Treat ment Notes Treatment Clinical Notes 01/09/2025 Other cirrhosis of liver (ICD-10 - K74.69) Her synthetic and excretory functions appear to be intact. There was no jaundice. Her liver edge was not palpable. Comprehensive blood work with liver function tests were ordered. We had a long discussion about weight loss. She continues to decline referral to an obesity treatment 01/09/2025 Morbid obesity (ICD-10 - E66.01) She remains morbidly obese. We discussed her diet. I have recommended aggressive calorie restriction and regular exercise. It is noted that she has lost 11 pounds since her last visit. He was encouraged to continue this. We discussed her weight loss strategy. 01/09/2025 Other and unspecifie d hyperlipidemia (ICD-10 - E78.5) Her lipids are grossly elevated. A repeat will be done. She will be started on a statin If these values are correct. 01/09/2025 HTN (hypertension) (ICD-10 - I10) Her blood pressure remained stable at 132/79. We discussed sodium restriction and aggressive weight loss. 01/09/2025 Type 2 diabetes mellitus without complication, without long-term current use of insulin (ICD-10 - E11.9) He is tolerating the metformin well. Comprehensive blood work with a fasting glucose has been ordered. 01/09/2025 Depression (ICD-10 - F32.9) Her depression is stable and mild she is compliant with her medications. She has been compliant with recent visits to mental health. 01/09/2025 Migraines (ICD-10 - G43.909) She reports no recent migraines. She is taking no medication for this. 01/09/2025 Osteoporosis (ICD-10 - M81.0) She was continued on her current regimen without change. A bone density has been ordered. Plan Of Treatment Medication Medication Name Sig Start Date Stop Date Notes Atorvastatin Calcium 40 MG 1 tablet Oral ly Once a day 12/12/2024 Gauze Pads 2 X2 use to check blood sugars Mondays , Wednesdays and Fridays for 30 days 01/09/2025 DX: Diabetes E11.9 Lancets 30G - use to check blood sugars Monday, Monday and Monday for 30 days 01/09/2025 DX: Diabetes E11.9 metFORMIN HCl 500 MG 1 tablet with a toni l Orally Once a day 12/12/2024 Alcohol Prep 70 % use to check blood sugars Mondays, Wednesdays and Fridays for 30 days 01/09/2025 DX: Diabetes E11.9 hydroCHLOROthiazide 25 MG TAKE 1 TABLET BY MOUTH ONCE DAILY IN THE MORNING WITH 8OZ OF ORANGE JUICE Oral Omeprazole 20 MG TAKE 1 CAPSULE BY MOUTH ONCE DAILY DIRECTED Orally Once a day Triamcinolone Acetonide 0.1 % 1 application Externally Twice a day 04/26/2022 Contour Next Test - use to check blood sugars Mondays, Wednesdays and Fridays In Vitro Mondays,Wednesdays, for 30 days 01/09/2025 DX: Diabetes E11.9 Contour Next Gen Monitor w/Device use to check blood sugars on Mondays,Wednesdays and Fridays for 30 days 01/09/2025 DX: Diabetes E11.9 Atorvastatin Calcium 20 MG 1 tablet Oral ly Once a day 03/22/2021 Pending Test Test Name Order Date PROFILE, FASTING (COMPREHENSIVE METABOLI C) 01/09/2025 GGT 01/09/2025 CBC w DIFF 01/09/2025 Lipid Panel 01/09/2025 Next Appt Details Follow Up: 6 Weeks, Reason: OV Provider Name:David Dinh , 08/11/2025 03:00:00 PM, [address] [place] [address] [address], [place], [address], Provider Name:David Dinh , 11/27/2025 09:30:00 AM, [address] [place] [address] [address], [place], [address], Progress Notes * Eliana KIM LDOB: [birth year] (59 yo F)Acc No.[id number]:01/09/2025 Progress Notes Patient: Eliana MARTIN Provider: Kimberli Dinh MD :1965 A ge:59 Y S ex:Female Date:01/09/2025 Address:[address] [place] [address], [id number] Subjective: * Chief Complaints: * N ormal liver testsObesityHyperlipidemiaDepressionFracture left ankleDiabetes * HPI: C OVID-19 Screening: .She returns to the office for medical management. Comprehensive blood work was available and was reviewed. Her liver function tests remain significantly elevated. His impression of her resources representative that this is secondary to steatosis and not infection. She has lost 10 pounds stimulated by the recent diagnosis of diabetes. She is tolerating metformin well. Impression minimal assist. She has cut her tobacco use down to 5 cigarettes a day. We had a long talk today about smoking cessation. Blood work done December 02, 2024 glucose 302 BUN 9 creatinine 0.7 AST 83 a T1 39 alkaline phosphatase 765 cholesterol 431 triglycerides 135 HDL 97 LDL 307. Questions H ave you had any new onset fever, chills, cough, congestion, sore throat, shortness of breath, muscle aches? N o * ROS: G eneral/Constitutional: pain o nly normal aches and pains. C hills d enies.?Fatigue a dmits. F ever d enies. E NT: Decreased hearing d enies. R espiratory: Cough n on-productive. C ardiovascular: Chest pain with exertion d enies. D yspnea on exertion?denies. S hortness of breath d enies. G astrointestinal: Constipation d enies. D ecreased appetite d enies.?Diarrhea d enies. H eartburn o ccasional. N ausea d enies. R ectal bleeding [...] ONCE DAILY DIRECTED Orally Once a day hydroCHLOROthiazide 25 MG Tablet TAKE 1 TABLET BY MOUTH ONCE DAILY IN THE MORNING WITH 8OZ OF ORANGE JUICE Oral Triamcinolone Acetonide 0.1 % Cream 1 application Externally Twice a day Atorvastatin Calcium 40 MG Tablet 1 tablet Orally Once a day metFORMIN HCl 500 MG Tablet 1 tablet with a meal Orally Once a day Atorvastatin Calcium 20 MG Tablet 1 tablet Orally Once a day Medication List reviewed and reconciled with the patientTaking Omeprazole 20 MG Capsule Delayed Release TAKE 1 CAPSULE BY MOUTH ONCE DAILY DIRECTED Orally Once a day Taking hydroCHLOROthiazide 25 MG Tablet TAKE 1 TABLET BY MOUTH ONCE DAILY IN THE MORNING WITH 8OZ OF ORANGE JUICE Oral Taking Triamcinolone Acetonide 0.1 % Cream 1 application Externally Twice a day Taking Atorvastatin Calcium 40 MG Tablet 1 tablet Orally Once a day Taking metFORMIN HCl 500 MG Tablet 1 tablet with a meal Orally Once a day Taking Atorvastatin Calcium 20 MG Tablet 1 tablet Orally Once a day Medication List reviewed and reconciled with the patient * Allergies: N o Known Drug Allergyno[Allergies Verified] Objective: * Vitals: H t: 61, Wt: 237, BMI:44.78, BP: 132/79, HR: 75, Temp: 97.8, Oxygen sat %: 97, Ht- cm: 154.94, Wt-k.5. * P ast Orders: Lab:Lipid Panel * Collection Date 12/03/2024 07/06/2022 [...] May have water,PLEASE FAX COMPLETED RESULTS TO [phone] * Lab:GGT * Collection Date 12/03/2024 2022 Order Date 11/25/2024 08/09/2021 Clinical Info: Please fast for 12-1 4 hours prior to having this labwork done. You may have black coffee or tea with no milk or sugar. May have water,PLEASE FAX COMPLETED RESULTS TO [phone] * Lab:URINE DIP STICK * Collection Date 11/25/2024 [...] neg trace Menstrating No no no * Examination: G eneral Examination: GENERAL APPEARANCE: p leasant, well nourished, well developed, in no acute [...] LUNGS: c lear to auscultation . BREASTS: N ot examined. ABDOMEN: b owel sounds normal, no ascites, no organomegaly, no mass, morbid obesity. RECTAL EXAM: n ot examined. MUSCULOSKELETAL: e xtremities unremarkable, no clubbing, cyanosis or edema, Pain to weightbearing left ankle. PERIPHERAL PULSES: n ormal. NEUROLOGIC: a lert and oriented, cranial nerves 2-12 grossly intact, deep tendon reflexes 2+ symmetrical, motor strength normal upper and lower extremities, sensory exam intact. PSYCH: a lert, oriented. Assessment: * Assessment: 1. M orbid obesity - E66.01 (Primary) N otes :She remains morbidly obese. We discussed her diet. I have recommended aggressive calorie restriction and regular exercise. It is noted that she has lost 11 pounds since her last visit. He was encouraged to continue this. We discussed her weight loss strategy. 2 . O ther cirrhosis of liver - K74.69 N otes :Her synthetic and excretory functions appear to be intact. There was no jaundice. Her liver edge was not palpable. Comprehensive blood work with liver function tests were ordered. We had a long discussion about weight loss. She continues to decline referral to an obesity treatment 3 . O ther and unspecified hyperlipidemia - E78.5 N otes :Her lipids are grossly elevated. A repeat will be done. She will be started on a statin If these values are correct. 4 . H TN (hypertension) - I10 N otes :Her blood pressure remained stable at 132/79. We discussed sodium restriction and aggressive weight loss. 5 . T ype 2 diabetes mellitus without complication, without long-term current use of insulin - E11.9 N otes :He is tolerating the metformin well. Comprehensive blood work with a fasting glucose has been ordered. 6 . D epression - F32.9 N otes :Her depression is stable and mild she is compliant with her medications. She has been compliant with recent visits to mental health. 7 . M igraines - G43.909 N otes :She reports no recent migraines. She is taking no medication for this. 8 . O steoporosis - M81.0 N otes :She was continued on her current regimen without change. A bone density has been ordered. Plan: * Treatment: 2. O ther and unspecified hyperlipidemia L AB: PROFILE, FASTING (COMPREHENSIVE METABOLIC) L AB: GGT L AB: CBC w DIFF L AB: Lipid Panel 3. H TN (hypertension) L AB: PROFILE, FASTING (COMPREHENSIVE METABOLIC) L AB: GGT L AB: CBC w DIFF L AB: Lipid Panel 4. T ype 2 diabetes mellitus without complication, without long-term current use of insulin Start Contour Next Gen Monitor Kit, w/Device, use to check blood sugars on Mondays,Wednesdays and Fridays, 30 days, 1 Kit, Refills 3, Notes to Pharmacist: DX: Diabetes E11.9; S tart Contour Next Test Strip, -, use to check blood sugars Mondays, Wednesdays and Fridays, In Vitro, Mondays,Wednesdays,Fridays, 30 days, 50, Refills 11, Notes to Pharmacist: DX: Diabetes E11.9; S tart Lancets 30G Miscellaneous, -, use to check blood sugars Monday, Monday and Monday, 30 days, 1 Pack, Refills 3, Notes to Pharmacist: DX: Diabetes E11.9; S tart Gauze Pads Pad, 2 X2 , use to check blood sugars Mondays , Wednesdays and Fridays, 30 days, 1 Pack, Refills 11, Notes to Pharmacist: DX: Diabetes E11.9; S tart Alcohol Prep Pad, 70 %, use to check blood sugars Mondays, Wednesdays and Fridays, 30 days, 1 pack, Refills 11, Notes to Pharmacist: DX: Diabetes E11.9. 5. O thers Continue Omeprazole Capsule Delayed Release, 20 MG, TAKE 1 CAPSULE BY MOUTH ONCE DAILY DIRECTED, Orally, Once a day. * Procedure Codes: 9 4760 MEASURE BLOOD OXYGEN LEVEL * Preventive Medicine: Counseling: C are goal [...] tobacco use and urged to quit. 0 01/09/2025 Patient Lifestyle Goals P atient wants to quit Treatment Goals S et a quit date, Cut down by 1 cigarette a week Barriers S ocial smoker, Stress Self-Management Plan M dmitry a plan to cut down number of cigarettes over time and set a date to work towards quitting DM Care Plan: P atient Lifestyle Goals P atient wants to be able to manage diabetes without too much effort. T reatment Goals B lood Sugars less than < 115, HbA1C < 7.0. B arriers n o barriers. * Follow Up: 6 Weeks (Reason: OV) * Images: * Sign off status: Completed true * Provider: Kimberli Dinh MD Date: 0 01/09/2025 Generated for Teena pascal/Lionel/eTransmitting on: 1 10/05/2024 09:24 PM EST History and Physical Notes * HPI (History of Present Illness) Category Sub-Category Detail Notes COVID-19 Screening Questions Have you had any new onset fever, chills, cough, congestion, sore throat, shortness of breath, muscle aches?: No Examination Category Sub-Category Detail Notes General Examination [...] lesion s, anicteric PERIPHERAL PULSES: normal BREASTS: Not examined MUSCULOSKELETAL: extremities unremark able, no clubbing, cyanosis or edema, Pain to weightbearing left ankle LYMPH NODES: no enlarged lymph no trell,spleen normal RECTAL EXAM: not examined PSYCH: alert, oriented ORAL CAVITY: normal, unremarkable
--- OUTSIDE RECORDS SUMMARY | 2025-01-10 09:03 | XMS_ITS ---
Author Organization David Dinh III, MD Address [address] [place] [address] Care Team Providers Care Data Center Technician Name Role Phone Dr. David Dinh III Primary Care Provider Medications Medication SIG (Take, Route, Frequency, Duration) Notes Start Date End Date Status Omeprazole 20 MG TAKE 1 CAPSULE BY MOUTH ONCE DAILY DIRECTED Orally Once a day Active Alcohol Prep 70 % use to check blood sugars Mondays, Wednesdays and Fridays DX: Diabetes E11.9 01/09/2025 Active hydroCHLOROthiazide 25 MG TAKE 1 TABLET BY MOUTH ONCE DAILY IN THE MORNING WITH 8OZ OF ORANGE JUICE Oral Active Gauze Pads 2 X2 use to check blood sugars Mondays , Wednesdays and Fridays DX: Diabetes E11.9 01/09/2025 Active Lancets 30G - use to check blood sugars Monday, Monday and Monday DX: Diabetes E11.9 01/09/2025 Active Triamcinolone Acetonide 0.1 % 1 application Externally Twice a day 04/26/2022 Active metFORMIN HCl 500 MG 1 tablet with a meal Orally Once a day 12/12/2024 Active Atorvastatin Calcium 40 MG 1 tablet Oral ly Once a day 12/12/2024 Active Contour Next Test - use to check blood sugars Mondays, Wednesdays and Fridays In Vitro Mondays,Wednesdays ,Fridays DX: Diabetes E11.9 01/09/2025 Active Contour Next Gen Monitor w/Device use to check blood sugars on Mondays,Wednesdays and Fridays DX: Diabetes E11.9 01/09/2025 Active Social History Sex Assigned At : Social History Observation Description Sex Assigned At Female Encounters Encounter Location Date Provider Diagnosis David Dinh III, MD [address] [place] [address] [place] [address] 01/10/2025 David Dinh Other cirrhosis of liver K74.69 and Type 2 diabetes mellitus without complication, without long-term current use of insulin E11.9 Assessments Encounter Date Diagnosis (ICD Code) Assessment Notes Treatment Notes Treatment Clinical Notes 01/10/2025 Other cirrhosis of liver (ICD-10 - K74.69) Her synthetic and excretory functions appear to be intact. There was no jaundice. Her liver edge was not palpable. Comprehensive blood work with liver function tests were ordered. We had a long discussion about weight loss. She continues to decline referral to an obesity treatment 01/10/2025 Type 2 diabetes mellitus without complication, without long-term current use of insulin (ICD-10 - E11.9) He is tolerating the metformin well. Comprehensive blood work with a fasting glucose has been ordered. Plan Of Treatment Medication Medication Name Sig Start Date Stop Date Notes Omeprazole 20 MG TAKE 1 CAPSULE BY MOUTH ONCE DAILY DIRECTED Orally Once a day Alcohol Prep 70 % use to check blood sugars Mondays, Wednesdays and Fridays01/09/2025 DX: Diabetes E11.9 hydroCHLOROthiazide 25 MG TAKE 1 TABLET BY MOUTH ONCE DAILY IN THE MORNING WITH 8OZ OF ORANGE JUICE Oral Gauze Pads 2 X2 use to check blood sugars Mondays , Wednesdays and Fridays01/09/2025 DX: Diabetes E11.9 Lancets 30G - use to check blood sugars Monday, Monday and Monday01/09/2025 DX: Diabetes E11.9 Triamcinolone Acetonide 0.1 % 1 application Externally Twice a day 04/26/2022 metFORMIN HCl 500 MG 1 tablet with a toni l Orally Once a day 12/12/2024 Atorvastatin Calcium 40 MG 1 tablet Oral ly Once a day 12/12/2024 Contour Next Test - use to check blood sugars Mondays, Wednesdays and Fridays In Vitro Mondays,Wednesdays,F ridays 01/09/2025 DX: Diabetes E11.9 Contour Next Gen Monitor w/Device use to check blood sugars on Mondays,Wednesdays and Fridays01/09/2025 DX: Diabetes E11.9 Next Appt Details Provider Name:David Dinh , 08/11/2025 03:00:00 PM, [address], [place], [address], Provider Name:David Dinh , 11/27/2025 09:30:00 AM, [address] [place] [address] [address], [place], [address], Progress Notes * JULIO Eliana LDOB: 4 (59 yo F)Acc No.[id number]:01/10/2025 Patient: Eliana MARTIN :1965 A ge:59 Y S ex:Female Address:[address] [place] [phone] * Refills Continue Omeprazole Capsule Delayed Release, 20 MG, Orally, TAKE 1 CAPSULE BY MOUTH ONCE DAILY DIRECTED, Once a day Continue hydroCHLOROthiazide Tablet, 25 MG, Oral, TAKE 1 TABLET BY MOUTH ONCE DAILY IN THE MORNING WITH 8OZ OF ORANGE JUICE Continue Triamcinolone Acetonide Cream, 0.1 %, Externally, 1 application, Twice a day Continue Atorvastatin Calcium Tablet, 40 MG, Orally, 1 tablet, Once a day Continue metFORMIN HCl Tablet, 500 MG, Orally, 1 tablet with a meal, Once a day Continue Contour Next Gen Monitor Kit, w/Device, use to check blood sugars on Mondays,Wednesdays and Fridays Continue Contour Next Test Strip, -, In Vitro, use to check blood sugars Mondays, Wednesdays and Fridays, Mondays,Wednesdays,Fridays Continue Lancets 30G Miscellaneous, -, use to check blood sugars Monday, Monday and Monday Continue Gauze Pads Pad, 2 X2 , use to check blood sugars Mondays , Wednesdays and Fridays Continue Alcohol Prep Pad, 70 %, use to check blood sugars Mondays, Wednesdays and Fridays Subjective: * Chief Complaints: * * Medical History: * Surgical History: * Hospitalization/Major Diagno stic Procedure: * Medications: Objective: * Vitals: * Physical Examination: Assessment: * Assessment: 1. O ther cirrhosis of liver - K74.69 N otes :Her synthetic and excretory functions appear to be intact. There was no jaundice. Her liver edge was not palpable. Comprehensive blood work with liver function tests were ordered. We had a long discussion about weight loss. She continues to decline referral to an obesity treatment 2 . T ype 2 diabetes mellitus without complication, without long-term current use of insulin - E11.9 N otes :He is tolerating the metformin well. Comprehensive blood work with a fasting glucose has been ordered. Plan: * Treatment: 2. T ype 2 diabetes mellitus without complication, without long-term current use of insulin Continue Contour Next Gen Monitor Kit, w/Device, use to check blood sugars on Mondays,Wednesdays and Fridays, Notes to Pharmacist: DX: Diabetes E11.9; C ontinue Contour Next Test Strip, -, use to check blood sugars Mondays, Wednesdays and Fridays, In Vitro, Mondays,Wednesdays,Fridays, Notes to Pharmacist: DX: Diabetes E11.9; C ontinue Lancets 30G Miscellaneous, -, use to check blood sugars Monday, Monday and Monday, Notes to Pharmacist: DX: Diabetes E11.9; C ontinue Gauze Pads Pad, 2 X2 , use to check blood sugars Mondays , Wednesdays and Fridays, Notes to Pharmacist: DX: Diabetes E11.9; C ontinue Alcohol Prep Pad, 70 %, use to check blood sugars Mondays, Wednesdays and Fridays, Notes to Pharmacist: DX: Diabetes E11.9. 3. O thers Continue Omeprazole Capsule Delayed Release, 20 MG, TAKE 1 CAPSULE BY MOUTH ONCE DAILY DIRECTED, Orally, Once a day. * Procedure Codes: * true * Date: Generated for Teena pascal/Lionel/Maria on: 10/05/2024 09:25 PM EST
--- OUTSIDE RECORDS SUMMARY | 2025-02-20 12:00 | XMS_ITS ---
Author Organization David Dinh III, MD Address [address] [place] [address] [place] [address] Care Team Providers Care Doughnut Machine Operator Helper Name Role Phone Dr. David Dinh III Primary Care Provider REASON FOR VISIT Follow up Social History Sex Assigned At : Social History Observation Description Sex Assigned At Female Encounters Encounter Location Date Provider Diagnosis David Dinh III, MD [address] [place] [address] [place] [address] 02/20/2025 David Dinh Plan Of Treatment Next Appt Details Provider Name:David Dinh , 08/11/2025 03:00:00 PM, [address] [place] [address] [place], [address], Provider Name:David Dinh , 11/27/2025 09:30:00 AM, [address] [place] [address] [place], [address], Progress Notes * lEiana KIM LDOB: 4 (60 yo F)Acc No.[id number]:02/20/2025 Progress Notes Patient: Eliana MARTIN Provider: Kimberli Dinh MD :1965 A ge:60 Y S ex:Female Date:02/20/2025 Address:[address] [place], [place] [id number] Subjective: * Chief Complaints: * 1 . Follow up. * Medical History: Objective: * Vitals: Assessment: Plan: * Treatment: * Images: * The named appointment provid er may or may not be the originator of this progress note, and it is not deemed complete until electronically signed by the appointment provider. Sign off status: Pending * Provider: Kimberli Dinh MD Date: 0 02/20/2025 Generated for Teena pascal/Lionel/Loboitting on: 1 10/05/2024 09:26 PM EST
--- OUTSIDE RECORDS SUMMARY | 2025-03-03 05:45 | XMS_ITS ---
Author Organization David Dinh III, MD Address [address] [place] [address] Care Team Providers Care Polytechnic Registrar Name Role Phone Dr. David Dinh III Primary Care Provider Allergies Allergen (clinical drug ingredient) Drug/Non Drug Allergy documented on EMR Reaction Allergy Type Onset Date Status No Known Drug Allergy Unknown Drug Allergy Active REASON FOR VISIT Follow up Medications Medication SIG (Take, Route, Frequency, Duration) Notes Start Date End Date Status Lancets 30G - use to check blood sugars Monday, Monday and Monday DX: Diabetes E11.9 01/09/2025 Active Gauze Pads 2 X2 use to check blood sugars Mondays , Wednesdays and Fridays DX: Diabetes E11.9 01/09/2025 Active Alcohol Prep 70 % use to check blood sugars Mondays, Wednesdays and Fridays DX: Diabetes E11.9 01/09/2025 Active Atorvastatin Calcium 20 MG 1 tablet Oral ly Once a day 03/22/2021 Active Contour Next Test - use to check blood sugars Mondays, Wednesdays and Fridays In Vitro Mondays,Wednesdays ,Fridays DX: Diabetes E11.9 01/09/2025 Active hydroCHLOROthiazide 25 MG TAKE 1 TABLET BY MOUTH ONCE DAILY IN THE MORNING WITH 8OZ OF ORANGE JUICE Oral Active Triamcinolone Acetonide 0.1 % 1 application Externally Twice a day 04/26/2022 Active Atorvastatin Calcium 40 MG 1 tablet Oral ly Once a day 12/12/2024 Active metFORMIN HCl 500 MG 1 tablet with a meal Orally Once a day 12/12/2024 Active Contour Next Gen Monitor w/Device use to check blood sugars on Mondays,Wednesdays and Fridays DX: Diabetes E11.9 01/09/2025 Active Omeprazole 20 MG 1 capsule 1/2 to 1 hour before morning meal Orally Once a day Active Social History [...] user Light cigarett e smoker (1-9 cigs/day) Encounters Encounter Location Date Provider Diagnosis David Dinh III, MD [address] [place] [address] [facility] [place] [address] 03/03/2025 David Dinh Other cirrhosis of liver K74.69 and Type 2 diabetes mellitus without complication, without long-term current use of insulin E11.9 Assessments Encounter Date Diagnosis (ICD Code) Assessment Notes Treatment Notes Treatment Clinical Notes 03/03/2025 Other cirrhosis of liver (ICD-10 - K74.69) Her synthetic and excretory functions appear to be intact. There was no jaundice. Her liver edge was not palpable. Comprehensive blood work with liver function tests were ordered. We had a long discussion about weight loss. She continues to decline referral to an obesity treatment 03/03/2025 Type 2 diabetes mellitus without complication, without long-term current use of insulin (ICD-10 - E11.9) He is tolerating the metformin well. Comprehensive blood work with a fasting glucose has been ordered. Plan Of Treatment Medication Medication Name Sig Start Date Stop Date Notes Lancets 30G - use to check blood sugars Monday, Monday and Monday01/09/2025 DX: Diabetes E11.9 Gauze Pads 2 X2 use to check blood sugars Mondays , Wednesdays and Fridays01/09/2025 DX: Diabetes E11.9 Alcohol Prep 70 % use to check blood sugars Mondays, Wednesdays and Fridays01/09/2025 DX: Diabetes E11.9 Atorvastatin Calcium 20 MG 1 tablet Oral ly Once a day 03/22/2021 Contour Next Test - use to check blood sugars Mondays, Wednesdays and Fridays In Vitro Mondays,Wednesdays,F ridays 01/09/2025 DX: Diabetes E11.9 hydroCHLOROthiazide 25 MG TAKE 1 TABLET BY MOUTH ONCE DAILY IN THE MORNING WITH 8OZ OF ORANGE JUICE Oral Triamcinolone Acetonide 0.1 % 1 application Externally Twice a day 04/26/2022 Atorvastatin Calcium 40 MG 1 tablet Oral ly Once a day 12/12/2024 metFORMIN HCl 500 MG 1 tablet with a toni l Orally Once a day 12/12/2024 Contour Next Gen Monitor w/Device use to check blood sugars on Mondays,Wednesdays and Fridays01/09/2025 DX: Diabetes E11.9 Omeprazole 20 MG 1 capsule 1/2 to 1 hour before morning meal Orally Once a day Next Appt Details Provider Name:David Dinh , 08/11/2025 03:00:00 PM, [address] [place] [address] [address], [place], [address], Provider Name:David Dinh , 11/27/2025 09:30:00 AM, [address] [place] [address] [address], [place], [address], Progress Notes * Eliana KIM LDOB: 4 (60 yo F)Acc No.[id number]:03/03/2025 Progress Notes Patient: Marquita MARTINskip Ramachandran Provider: Kimberli Dinh MD :1965 A ge:60 Y S ex:Female Date:03/03/2025 Address:[address] [place] [phone] Subjective: * Chief Complaints: * 1 . Follow up. * HPI: C OVID-19 Screening: Questions H ave you had any new [...] Depressed mood d enies. * Medical History: O besity, migraines, Panic attacks, Anxiety, Depression, Hyperlipidemia, Ovarian cyst removed 1995, Tensosynovitis, Trichomonas 2005, Hammer toes, Smoker, Degenerative joint disease first metatarsal joint, Hidradenitis, Elevated alkaline phosphatase, Right breast mass, benign, 09/2015. * Surgical History: t onsillectomy and adenoidectomy , cholecystectomy , OSWALDO/BSO , ovarian cystectomy 1995, negative biopsy right breast 09/2015. * Hospitalization/Major Diagno stic Procedure: o varian cystectomy 1995, hysterectomy 2004. * Family History: F ather: . M [...] cigarette smoker (1-9 cigs/day) * Medications: T aking Atorvastatin Calcium 20 MG Tablet 1 tablet Orally Once a day , Taking hydroCHLOROthiazide 25 MG Tablet TAKE 1 TABLET BY MOUTH ONCE DAILY IN THE MORNING WITH 8OZ OF ORANGE JUICE Oral , Taking Triamcinolone Acetonide 0.1 % Cream 1 application Externally Twice a day , Taking Atorvastatin Calcium 40 MG Tablet 1 tablet Orally Once a day , Taking metFORMIN HCl 500 MG Tablet 1 tablet with a meal Orally Once a day , Taking Contour Next Gen Monitor w/Device Kit use to check blood sugars on Mondays,Wednesdays and Fridays , Notes to Pharmacist: DX: Diabetes E11.9, Taking Contour Next Test - Strip use to check blood sugars Mondays, Wednesdays and Fridays In Vitro Mondays,Wednesdays,Fridays , Notes to Pharmacist: DX: Diabetes E11.9, Taking Lancets 30G - Miscellaneous use to check blood sugars Monday, Monday and Monday , Notes to Pharmacist: DX: Diabetes E11.9, Taking Gauze Pads 2 X2 Pad use to check blood sugars Mondays , Wednesdays and Fridays , Notes to Pharmacist: DX: Diabetes E11.9, Taking Alcohol Prep 70 % Pad use to check blood sugars Mondays, Wednesdays and Fridays , Notes to Pharmacist: DX: Diabetes E11.9, Taking Omeprazole 20 MG Capsule Delayed Release 1 capsule 1/2 to 1 hour before morning meal Orally Once a day , Medication List reviewed and reconciled with the patient * Allergies: N o Known Drug Allergy. Objective: * Vitals: * Examination: G eneral Examination: GENERAL APPEARANCE: p leasant, well nourished, well developed, in no acute distress, calm and relaxed. HEAD: a traumatic, normocephalic. EYES: e chica, [...] LUNGS: c lear to auscultation . BREASTS: no masses palpable bilaterally. ABDOMEN: b owel sounds normal, no ascites, no organomegaly, no mass. RECTAL EXAM: n ot examined. MUSCULOSKELETAL: e xtremities unremarkable, no clubbing, cyanosis or edema. PERIPHERAL PULSES: n ormal. NEUROLOGIC: a lert [...] Continue Omeprazole Capsule Delayed Release, 20 MG, 1 capsule 1/2 to 1 hour before morning meal, Orally, Once a day. * Images: * The named appointment provid er may or may not be the originator of this progress note, and it is not deemed complete until electronically signed by the appointment provider. Sign off status: Pending * Provider: Kimberli Dinh MD Date: 0 03/03/2025 Generated for Teena pascal/Lionel/Loboitting on: 10/05/2024 09:23 PM EST History and Physical Notes * HPI (History of Present Illness) Category Sub-Category Detail Notes COVID-19 Screening Questions Have you had any new onset fever, chills, cough, congestion, sore throat, shortness of breath, muscle aches?: No Examination Category Sub-Category Detail Notes General Examination GENERAL APPEARANCE: pleasant , well nourished, well developed, in no acute distress, calm and relaxed HEAD: atraumatic, normocep halic EYES: eomi, perrla, anicte maikel, conjugate EARS: normal NOSE: septum intact NECK/THYROID: no jugular venous di stention, no carotid bruit, thyroid normal HEART: no clicks, gallops, murmurs, or rubs, regular rhythm, S1, S2 normal, no s3, or vascular bruits LUNGS: clear to auscultatio n ABDOMEN: bowel sounds normal, no ascites, no organomegaly, no mass NEUROLOGIC: alert and oriented, cranial nerves 2-12 grossly intact, deep tendon reflexes 2+ symmetrical, motor strength normal upper and lower extremities, sensory exam intact SKIN: no suspicious lesion s, anicteric PERIPHERAL PULSES: normal BREASTS: no masses palpable b ilaterally MUSCULOSKELETAL: extremities unremark able, no clubbing, cyanosis or edema LYMPH NODES: no enlarged lymph no trell,spleen normal RECTAL EXAM: not examined PSYCH: alert, oriented ORAL CAVITY: normal, unremarkable
--- OUTSIDE RECORDS SUMMARY | 2025-06-12 04:30 | XMS_ITS ---
Author Organization David Dinh III, MD Address [address] [address] Care Team Providers Care Computer Instructor Name Role Phone Dr. David Dinh III Primary Care Provider [phone] REASON FOR VISIT Sick Medications Medication SIG (Take, Route, Fr equency, Duration) Notes Start Date End Date Status Azithromycin 250 MG as directed Orally 2 Tablets on the first day, one tablet the rest of the days for 5 days 06/12/2025 06/17/2025 Active Social History Sex Assigned At : Social History Observation Description Sex Assigned At Female Encounters Encounter Location Date Provider Diagnosis David Dinh III, MD [address] [place] [address] [place] [address] 06/12/2025 David Dinh Plan Of Treatment Medication Medication Name Sig Start Date Stop Date Notes Azithromycin 250 MG as directed Orally 2 Tablets on the first day, one tablet the rest of the days for 5 days 06/12/2025 06/17/2025 Next Appt Details Provider Name:David Dinh , 08/11/2025 03:00:00 PM, [address] [place] [address] [place], [address], Provider Name:David Dinh , 11/27/2025 09:30:00 AM, [address] [place] [address] DR, [address], [place], [address], Progress Notes * Eliana KIM LDOB: 4 (60 yo F)Acc No.[id number]:06/12/2025 Patient: Eliana MARTIN :1965 A ge:60 Y S ex:Female Address:[address] [place] [phone] * Refills Start Azithromycin Tablet, 250 MG, Orally, 6, as directed, 2 Tablets on the first day, one tablet the rest of the days, 5 days, Refills=0 * true * Date: Generated for Teena pascal/Lionel/Loboitting on: 1 10/05/2024 09:24 PM EST
--- OUTSIDE RECORDS SUMMARY | 2025-07-31 09:30 | XMS_ITS ---
Author Organization David Dinh III, MD Address [address] [address] Care Team Providers Care Senior Compliance Analyst Name Role Phone Dr. David Dinh III Primary Care Provider REASON FOR VISIT Message Social History Sex Assigned At : Social History Observation Description Sex Assigned At Female Encounters Encounter Location Date Provider Diagnosis David Dinh III, MD [address] [place] [address] [place] [address] 07/31/2025 David Dinh Plan Of Treatment Next Appt Details Provider Name:David Dinh , 08/11/2025 03:00:00 PM, [address] [place] [address] [place], [address], Provider Name:David Dinh , 11/27/2025 09:30:00 AM, [address] [place] [address] [place], [address], Progress Notes * Eliana KIM LDOB: 4 (60 yo F)Acc No.[id number]:07/31/2025 Patient: Eliana MARTIN :1965 A ge:60 Y S ex:Female Address:[address] [place] [phone] * true * Date: Generated for Teena pascal/Lionel/Maria on: 10/05/2024 09:24 PM EST
--- NOTE | ~2025-08-04 | XR_ITS ---
EXAMINATION: XR CHEST CLINICAL INFORMATION: TYPE 2 DIABETES COMPARISON: None available. TECHNIQUE: 2 views of the chest were obtained. FINDINGS: There is mild enlargement of the cardiac silhouette. The lungs are clear and well aerated. There is no sign of pleural effusion. No bony abnormality is evident. XR/XR chest 2V IMPRESSION: Cardiomegaly. Electronically signed by: Florian Rodriguez MD 08/04/2025 04:07 PM [facility]
--- OUTSIDE RECORDS SUMMARY | 2025-08-04 09:00 | XMS_ITS ---
Author Organization David Dinh III, MD Address [address] [facility] [address] [place] [address] Care Team Providers Care Museum Attendant Name Role Phone Dr. David Dinh III Primary Care Provider [phone] Allergies Allergen (clinical drug ingredient) Drug/Non Drug Allergy documented on EMR Reaction Allergy Type Onset Date Status No Known Drug Allergy Unknown Drug Allergy Active REASON FOR VISIT Chest pain x 1 month, Left back side lump x 2 days, When getting up from sitting down or laying down feels dizzy Medications Medication SIG (Take, Route, Frequency, Duration) Notes Start Date End Date Status Contour Next Gen Monitor w/Device use to check blood sugars on Mondays,Monday s and Fridays DX: Diabetes E11.9 01/09/2025 Active metFORMIN HCl 500 MG 1 tablet with a meal Orally Once a day 12/12/2024 Active Atorvastatin Calcium 40 MG 1 tablet Oral ly Once a day 12/12/2024 Active Lancets 30G - use to check blood sugars Monday, Monday and Monday DX: Diabetes E11.9 01/09/2025 Active Contour Next Test - use to check blood sugars Mondays, Wednesdays and Fridays In Vitro Mondays,Monday s,Fridays DX: Diabetes E11.9 01/09/2025 Active Triamcinolone Acetonide 0.1 % 1 application Externally Twice a day 04/26/2022 Active hydroCHLOROthiazide 25 MG TAKE 1 TABLET BY MOUTH ONCE DAILY IN THE MORNING WITH 8OZ OF ORANGE JUICE Oral Active Omeprazole 20 MG 1 capsule 1/2 to 1 hour before morning meal Orally Once a day Active Alcohol Prep 70 % use to check blood sugars Mondays, Wednesdays and Fridays DX: Diabetes E11.9 01/09/2025 Active Ibuprofen 400 MG 1 tablet with food Orally four times a day for 10 days 08/04/2025 09/13/2025 Active Gauze Pads 2 X2 use to check blood sugars Mondays , Wednesdays and Fridays DX: Diabetes E11.9 01/09/2025 Active Doxycycline Hyclate 100 MG 1 capsule Ora lly twice a day for 10 days 08/04/2025 08/14/2025 Active Social History Tobacco Use: Social History [...] user Light cigarett e smoker (1-9 cigs/day) Vital Signs Temperature 97.1 degrees Fahrenheit 08/04/20 25 Blood pressure systolic 136 mm Hg 08/04/20 25 Blood pressure diastolic 85 mm Hg 025 Heart Rate 70 /min 08/04/2025 Height 61 in 08/04/2025 Weight 228 lbs 08/04/2025 BMI 43.08 kg/m2 08/04/2025 Encounters Encounter Location Date Provider Diagnosis David Dinh III, MD [address] [place] [address] [address] [place], [place] [address] 08/04/2025 David Dinh Other cirrhosis of liver K74.69 ; Type 2 diabetes mellitus without complication, without long-term current use of insulin E11.9 ; HTN (hypertension) I10 and Chest pain, unspecified type R07.9 Assessments Encounter Date Diagnosis (ICD Code) Assessment Notes Treatment Notes Treatment Clinical Notes 08/04/2025 Other cirrhosis of liver (ICD-10 - K74.69) Her synthetic and excretory functions appear to be intact. There was no jaundice. Her liver edge was not palpable. Comprehensive blood work with liver function tests were ordered. We had a long discussion about weight loss. She continues to decline referral to an obesity treatment 08/04/2025 Type 2 diabetes mellitus without complication, without long-term current use of insulin (ICD-10 - E11.9) He is tolerating the metformin well. Comprehensive blood work with a fasting glucose has been ordered. 08/04/2025 HTN (hypertension) (ICD-10 - I10) 08/04/2025 Chest pain, unspecified type (ICD-10 - R07.9) Plan Of Treatment Medication Medication Name Sig Start Date Stop Date Notes Contour Next Gen Monitor w/Device use to check blood sugars on Mondays,Wednesdays and Fridays01/09/2025 DX: Diabetes E11.9 metFORMIN HCl 500 MG 1 tablet with a meal Orally Once a day 12/12/2024 Atorvastatin Calcium 40 MG 1 tablet Oral ly Once a day 12/12/2024 Lancets 30G - use to check blood sugars Monday, Monday and Monday01/09/2025 DX: Diabetes E11.9 Contour Next Test - use to check blood sugars Mondays, Wednesdays and Fridays In Vitro Mondays,Wednesdays, Fridays01/09/2025 DX: Diabetes E11.9 Triamcinolone Acetonide 0.1 % 1 application Externally Twice a day 04/26/2022 hydroCHLOROthiazide 25 MG TAKE 1 TABLET BY MOUTH ONCE DAILY IN THE MORNING WITH 8OZ OF ORANGE JUICE Oral Omeprazole 20 MG 1 capsule 1/2 to 1 hour before morning meal Orally Once a day Alcohol Prep 70 % use to check blood sugars Mondays, Wednesdays and Fridays01/09/2025 DX: Diabetes E11.9 Ibuprofen 400 MG 1 tablet with food Orally four times a day for 10 days 08/04/2025 09/13/2025 Gauze Pads 2 X2 use to check blood sugars Mondays , Wednesdays and Fridays01/09/2025 DX: Diabetes E11.9 Doxycycline Hyclate 100 MG 1 capsule Ora lly twice a day for 10 days 08/04/2025 08/14/2025 Pending Test Test Name Order Date XR CHEST 2 VIEW PA & LAT 08/04/2025 ECG 12 lead EKG 08/04/2025 Next Appt Details Follow Up: 1 Week, Reason: T eleheath review cxr and EKG Provider Name:David Dinh , 08/11/2025 03:00:00 PM, [address] [facility] [address], [place], [address], Provider Name:David Dinh , 11/27/2025 09:30:00 AM, [address] [facility] [address], [place], [address], Progress Notes * Eliana KIM LDOB: 4 (60 yo F)Acc No.[id number]:08/04/2025 Progress Notes Patient: Eliana MARTIN Provider: Kimberli Dinh MD :1965 A ge:60 Y S ex:Female Date:08/04/2025 Address:[address] [place] [phone] Subjective: * Chief Complaints: * 1 . Chest pain x 1 month. 2. Left back side lump x 2 days. 3. When getting up from sitting down or laying down feels dizzy. * HPI: C OVID-[facility], chest pain shooting sitting mostly. Questions H ave you had any new [...] smoker (1-9 cigs/day) * Medications: T aking Omeprazole 20 MG Capsule Delayed Release 1 capsule 1/2 to 1 hour before morning meal Orally Once a day , Taking hydroCHLOROthiazide [...] , Notes to Pharmacist: DX: Diabetes E11.9, Discontinued Atorvastatin Calcium 20 MG Tablet 1 tablet Orally Once a day , Medication List reviewed and reconciled with the patient * Allergies: N o Known Drug Allergy. Objective: * Vitals: H t: 61, Wt: 228, BMI:43.08, BP: 136/85, HR: 70, Temp: 97.1, Ht-cm: 154.94, Wt-k.42. * Examination: G eneral Examination: GENERAL APPEARANCE: [...] with a fasting glucose has been ordered. 3 . H TN (hypertension) - I10 4 . C hest pain, unspecified type - R07.9 Plan: * Treatment: 2. T ype 2 [...] Fridays, Notes to Pharmacist: DX: Diabetes E11.9. I maging: XR CHEST 2 VIEW PA & LAT I maging: ECG 12 lead EKG 3. O thers Continue Omeprazole Capsule Delayed Release, 20 MG, 1 capsule 1/2 to 1 hour before morning meal, Orally, Once a day. * Follow Up: 1 Week (Reason: Teleheath review cxr and EKG) * Images: * The named appointment provid er may or may not be the originator of this progress note, and it is not deemed complete until electronically signed by the appointment provider. Sign off status: Pending * Provider: Kimberli Dinh MD Date: 10/05/2024 Generated for Teena pascal/Lionel/Loboitting on: 10/05/2024 09:24 PM EST History and Physical [...]
--- NOTE | 2025-08-04 14:59 | ECG_ITS ---
Test Reason : e11.9 Blood Pressure : */* mmHG Vent. Rate : 71 BPM Atrial Rate : 71 BPM P-R Int : 134 ms QRS Dur : 64 ms QT Int : 384 ms P-R-T Axes : -24 4 198 degrees QTcB Int : 417 ms Normal sinus rhythm Minimal voltage criteria for LVH, may be normal variant ( R in aVL ) Nonspecific T wave abnormality Abnormal ECG No previous ECGs available Referred By: David Dinh Electronically Signed By:
--- OUTSIDE RECORDS SUMMARY | 2025-08-04 21:24 | XMS_ITS | Clinical Summary ---
Author Organization [facility] Address [address] [place] [address] Phone Care Team Providers Care Tower Foreman Name Role Phone David Dinh MD Primary Care Provider [phone] Allergies No known active allergies Medications hydroCHLOROthia zide (HYDRODIURIL) 25 mg tablet Take 1 tablet (25 mg total) by mouth 1 (one) time each day. Active metFORMIN (GLUCOPHAGE) 500 mg tablet Take 1 tablet (500 mg total) by mouth 1 (one) time each day. with food Active blood sugar diagnostic (Contour Next Test Strips) test strip use to check blood sugars Mondays, Wednesdays and Fridays In Vitro Mondays,,Fridays 5 Active blood-glucose meter kit use to check blood sugars on Mondays, and Fridays 5 Active atorvastatin (LIPITOR) 40 mg tablet Take 1 tablet (40 mg total) by mouth 1 (one) time each day. Active Alcohol Prep Pads pads, medicated use to check blood sugars Mondays, Wednesdays and Fridays 5 Active omeprazole (PriLOSEC) [address] capsule Take 1 capsule (20 mg total) by mouth 1 (one) time each day. 5 Active diclofenac (Voltaren Arthritis Pain) 1 % topical gel Apply 2 g topically 4 (four) times a day. 150 g 1 5 Active meloxicam (MOBIC) 15 mg tablet Take 1 tablet (15 mg total) by mouth 1 (one) time each day. 30 tablet 5 Active Surgical History Surgery Date Site/Laterality Comments HYSTERECTOMY Family History Medical History Relation Name Comments Breast cancer Mother Breast cancer Mother's Sister Relation Name Status Comments Mother Mother's Sister Alive Social History Tobacco Use Types Packs/Day Years Used Date Smoking Tobacco: Every Day Cigarettes 0.5 47 Started: 08/21/1978 Passive Smoke Exposure: Past Smokeless Tobacco: Never Tobacco Cessation:Ready to Q uit: Not Asked; Counseling Given: Not Answered Alcohol Use Standard Drinks/Week Comments Not Currently 0 (1 standard drink = 0.6 oz pur e alcohol) Comments No Sex and Gender Information Value Date Recorded Sex Assigned at Female 12/02/2024 9:35 AM EDT Legal Sex Female 8:33 PM EST Gender Identity Female 12/02/2024 9:35 AM EDT Sexual Orientation Straight 12/02/2024 9: 35 AM EDT Last Filed Vital Signs Vital Sign Reading Time Taken Comments Blood Pressure - - Pulse - - Temperature - - Respiratory Rate 16 02/13/2025 10:30 AM EDT Oxygen Saturation - - Inhaled Oxygen Concentration - - Weight 112 kg (247 lb) 02/13/2025 10:30 AM EDT Height 152.4 cm (5') 02/13/2025 10:30 AM EDT Body Mass Index 48.24 02/13/2025 10:30 AM EDT Plan of Treatment Health Maintenance Due Date Last Done Comments Colorectal Cancer Screening: Colonoscopy 1964 DTaP,Tdap,and Td Vaccines (1 - Tdap) 01/18/1983 Hepatitis A Vaccines (1 of 2 - Risk 2-dose series) 01/18/1983 Pneumococcal Vaccine: 50+ Years (1 of 2 - PCV) 01/18/1983 Cervical Cancer Screening: Pap Smear 01/18/1985 RSV Immunization Adult Patients (1 - Risk 50-74 years 1-dose series) 01/18/2014 Zoster Vaccines (1 of 2) 01/18/2014 HIV Screening 07/23/2022 Hepatitis C Screening 07/23/2022 Lung Cancer Screening (Low Dose CT) 07/23/2022 Medicare Annual Wellness Visit 07/23/2022 Social Influencers of Health Screening 07/23/2022 Hepatitis B Vaccines (1 of 3 - Risk 3-dose series) 2024 Depression Screening 08/21/2024 COVID-19 Vaccine ( season) 2025 Influenza Vaccine (#1) 2025 Breast Cancer Screening 01/16/2027 01/17/20, 12/12/2022, 02/10/2021, Additional history exists Cholesterol Screening (Lipid Panel) 12/02/2029 12/02/2024 HIB Vaccines Aged Out No longer eligi ble based on patient's age to complete this topic HPV Vaccines Aged Out No longer eligi ble based on patient's age to complete this topic IPV Vaccines Aged Out No longer eligi ble based on patient's age to complete this topic MMR Vaccines Aged Out No longer eligi ble based on patient's age to complete this topic Meningococcal ACWY Vaccine Aged Out N o longer eligible based on patient's age to complete this topic Meningococcal B Vaccine Aged Out No l onger eligible based on patient's age to complete this topic RSV Immunization Patients Under 20 months Aged Out No longer eligible based on patient's age to complete this topic Varicella Vaccines Aged Out No longer eligible based on patient's age to complete this topic Procedures Procedure Name Priority Date/Time Associated Diagnosis Comments MG MAMMO DIGITAL SCREENING W RU BILAT Routine 01/16/2025 10:01 AM EDT Encounter for screening mammogram for breast cancer LIPID PANEL WITH REFLEX TO DIRECT LDL Routine 12/02/2024 11:02 AM EDT Routine general medical examination at a health care facility Liver cirrhosis (CMS/HCC V24, CMS/FORMERLY [facility] V28) Abnormal blood chemistry from Last 3 Months or Most Recently Relevant to Health Maintenance Results * MG Mammo Digital Screening w Ru bilat (01/16/2025 10:01 AM EDT) Anatomical Region Laterality Modality Breast Bilateral Mammography 01/16/2025 10:1 1 AM EDT Impressions 01/16/2025 10:18 AM EDT No mammographic evidence of malignancy. A negative mammogram in the presence of a clinically suspicious palpable abnormality does not preclude the possibility of malignancy or alter the indications for biopsy. PQRI CPT II 3342F Code 70346, 17312 PQRI 225 CPT II 7025F TISSUE DENSITY: The breasts are almost entirely fatty. (BI-RADS Category A) IMPRESSION: Benign. BI-RADS CATEGORY: 2 - BENIGN RECOMMENDATION: Screening bilateral mammogram is recommended in 1 year. Mammo Location: [facility], [address] [place] [id number] -------- FINAL REPORT -------- Dictated By: Sotero Copeland Dictated Date: 01/16/2025 10:11 ET Assigned Physician: Sotero Copeland Reviewed and Electronically Signed By: Sotero Copeland Signed Date: 01/16/2025 10:18 ET Workstation ID: [id number] Transcribed By: Self Edit Transcribed Date: 01/16/2025 10:13 ET Narrative 01/16/2025 10:18 AM EDT CLINICAL: The patient is a 59 years Female presenting for routine screening mammography. The patient underwent biopsy of microcalcifications medially in the right breast on 10/12/2015, pathology benign. The patient has a family history of breast cancer involving her mother at age 62, as well as a maternal aunt. COMPARISON: Most recently 12/12/2022 and most remotely 09/01/2015. TECHNIQUE: Full-field digital mammography of the breasts bilaterally consisting of tomosynthesis in MLO and CC projection is performed in the [employer] 2000-D unit. Computer aided detection utilizing the [employer] system was utilized. FINDINGS: The breasts are again seen to be largely fatty replaced. A tissue marker from the previous benign biopsy is again seen medially in the right breast. Multiple benign punctate, secretory, rim, and vascular calcifications are again seen, increasing in number over time but are without suspicious interval change. There is no suspicious cluster of microcalcifications, mass, or area of architectural distortion. There is no skin thickening or nipple retraction. Procedure Note Sotero Copeland MD - 01/16/2025 CLINICAL: The patient is a 59 years Female presenting for routinescreening mammography. The patient underwent biopsy ofmicrocalcifications medially in the right breast on 10/12/2015, pathologybenign. The patient has a family history of breast cancer involving hermother at age 62, as well as a maternal aunt. COMPARISON: Most recently 12/12/2022 and most remotely 09/01/2015. TECHNIQUE: Full-field digital mammography of the breasts bilaterallyconsisting of tomosynthesis in MLO and CC projection is performed in the[employer] Sen[employer]he 2000-D unit. Computer aided detection utilizing the [employer]ystem was utilized. FINDINGS: The breasts are again seen to be largely fatty replaced. Atissue marker from the previous benign biopsy is again seen medially inthe right breast. Multiple benign punctate, secretory, rim, and vascularcalcifications are again seen, increasing in number over time but arewithout suspicious interval change. There is no suspicious cluster ofmicrocalcifications, mass, or area of architectural distortion. There isno skin thickening or nipple retraction. IMPRESSION: No mammographic evidence of malignancy. A negative mammogram in the presence of a clinically suspicious palpableabnormality does not preclude the possibility of malignancy or alter theindications for biopsy. PQRI CPT II 3342F Code 12859, 24462 PQRI 225 CPT II 7025F TISSUE DENSITY: The breasts are almost entirely fatty. (BI-RADS CategoryA) IMPRESSION: Benign. BI-RADS CATEGORY: 2 - BENIGN RECOMMENDATION: Screening bilateral mammogram is recommended in 1 year. Mammo Location: [facility], [address] [place] [id number] -------- FINAL REPORT -------- Dictated By: Sotero Copeland Dictated Date: 01/16/2025 10:11 ET Assigned Physician: Sotero Copeland Reviewed and Electronically Signed By: Sotero Copeland Signed Date: 01/16/2025 10:18 ET Workstation ID: [id number] Transcribed By: Self Edit Transcribed Date: 01/16/2025 10:13 ET us Self Referral Sppl IMG BI PROCEDURES Final Resul t * (ABNORMAL) Lipid panel with reflex to direct LDL (12/02/2024 11:02 AM EDT) Cholesterol 431(H) 0 - 200 mg/dL LAB CHEMISTRY METHOD 12/02/2024 3:41 PM EDT [facility] Triglycerides 135 0 - 150 mg/dL LAB CHEMISTRY METHOD 12/02/2024 3:41 PM EDT [facility] HDL 97 >=40 mg/dL LAB CHEMISTRY METHOD 12/02/2024 3:41 PM EDT [facility] LDL Calculated 307(H) 0 - 100 mg/dL LAB CHEMISTRY METHOD 12/02/2024 3:41 PM EDT [facility] VLDL Cholesterol Arash 27 mg/dL LAB CHEMISTRY METHOD 12/02/2024 3:41 PM EDT [facility] Non HDL Chol. (LDL+VLDL) 334(H) <145 mg/dL LAB CHEMISTRY METHOD 12/02/2024 3:41 PM EDT [facility] Chol/HDL Ratio 4.4 0.0 - 4.4 LAB CHEMISTRY METHOD 12/02/2024 3:41 PM EDT [facility] Blood Venous blood specimen / Unknown Venipuncture / Unknown 12/02/2024 11:02 AM EDT 12/02/2024 12:36 PM EDT us David Dinh MD LAB BLOOD ORDERABLES Final Res ult [facility] [address] [place] [address], from Last 3 Months or Most Recently Relevant to Health Maintenance Insurance MEDICARE MEDICAID - [place] Care Teams Tower Foreman Relationship Specialty Start Date End Date David Dinh MD [address] [address] PCP - General Oncology 12/02/24
--- OUTSIDE RECORDS SUMMARY | 2025-08-04 21:26 | XMS_ITS | Patient Health Record ---
Author Organization David Dinh III, MD Address [address] [address] Care Team Providers Care Sales Force Administrator Name Role Phone Dr. David Dinh III [...] date:12/03/2024 09:41:58 AM Interpretation: Performing Lab: Notes/Report: XR chest 2V (Not yet reviewe d by provider) Interpretation: Performing Lab: Notes/Report: [address] [address] XRay Report Signed Patient: Eliana Franklin MR#: [id number] 60 : 1965 Acct:[id number] Age/Sex: 60 / F ADM Date: 08/04/25 Loc: [facility] Attending Dr: David Dinh MD Ordering Physician: David Dinh MD Date of Service: 08/04/25 Procedure(s): XR chest 2V Accession Number(s): [id number] cc: David Dinh MD Reason for Exam: TYPE 2 DIABETES EXAMINATION: XR CHEST CLINICAL INFORMATION: TYPE 2 DIABETES COMPARISON: None available. TECHNIQUE: 2 views of the chest were obtained. FINDINGS: There is mild enlargement of the cardiac silhouette. The lungs are clear and well aerated. There is no sign of pleural effusion. No bony abnormality is evident. XR/XR chest 2V IMPRESSION: Cardiomegaly. Electronically signed by: Florian Rodriguez MD 08/04/2025 04:07 PM [facility] Dictated By: Florian Rodriguez MD Signed By: <Electronically signed by Florian Rodriguez MD in OV> 08/04/25 1607 DD/ 1521 TD/TT: 08/04/25 1525 Service Counselor: [place] [id number] XRay Report Signed Patient: Alecia Franklin MR#: [id number] 60 : 1965 Acct:[id number] Age/Sex: 60 / F ADM Date: 08/04/25 Loc: [facility] Attending Dr: David Dinh MD Ordering Physician: David Dinh MD Date of Service: 08/04/25 Procedure(s): XR chest 2V Accession Number(s): [id number] cc: David Dinh MD Reason for Exam: TYPE 2 DIABETES EXAMINATION: XR CHEST CLINICAL INFORMATION: TYPE 2 DIABETES COMPARISON: None available. TECHNIQUE: 2 views of the chest were obtained. FINDINGS: There is mild enlarg ement of the cardiac silhouette. The lungs are clear and well aerated. There is no sign of pleural effusion. No bony abnormality is evident. X R/XR chest 2V IMPRESSION: Cardiomegaly. Electronically omar d by: Florian Rodriguez MD 08/04/2025 04:07 PM [facility] Dictated By: Florian Rodriguez MD Signed By: <Najma taylor signed by Florian Rodriguez MD in OV> 08/04/25 1607 DD/ 1521 TD/TT: 08/04/25 152 Service Counselor: Reason For Referral Reason Consult and Treat [...] Provider Speciality Internal M edicine Referred Provider [facility] Referred Provider Specialty [facility]opedic [facility] General Notes Kaya Durant 12/02/2024 01:12:56 PM > Referral faxed with progress note, patient has not went and had xr's done, Johanna Delgado CMA 12/12/2024 09:45:05 AM >Ref/demo/progress note and recent labs faxed again to [facility] pt will call set up appt and call back to let us know when she will be seen, Kaya Durant 12/12/2024 09:55:58 AM > Patient called [facility] in which they stated they are 3 weeks behind next week and have not gotten to the referral and was advised to call back next week., Johanna Delgado CMA 01/20/2025 01:25:51 PM > Patient ended up going to [facility] urgent care on 12/27/2024 and was seen and treated Referral Priority Routine Medications Medication SIG (Take, Route, Frequency, Duration) Notes Start Date End Date Status Contour Next Gen Monitor w/Device use to check blood sugars on Mondays,Monday s and Fridays DX: Diabetes E11.9 01/09/2025 Active metFORMIN HCl 500 MG 1 tablet with a meal Orally Once a day 12/12/2024 Active Atorvastatin Calcium 40 MG 1 tablet Oral ly Once a day 12/12/2024 Active Triamcinolone Acetonide 0.1 % 1 application [...] and Fridays DX: Diabetes E11.9 01/09/2025 Active Gauze Pads 2 X2 use to check blood sugars Mondays , Wednesdays and Fridays DX: Diabetes E11.9 01/09/2025 Active Doxycycline Hyclate 100 MG 1 capsule Ora lly twice a day for 10 days 08/04/2025 08/14/2025 Active Lancets 30G - use to check blood sugars Monday, Monday and Monday DX: Diabetes E11.9 01/09/2025 Active Ibuprofen 400 MG 1 tablet with food Orally four times a day for 10 days 08/04/2025 09/13/2025 Active Contour Next Test - use to check blood sugars Mondays, Wednesdays and Fridays In Vitro Mondays,Monday s,Fridays DX: Diabetes E11.9 01/09/2025 Active Social History Tobacco Use: Social History [...] Problem Status W/U Status Risk Notes Problem 30692896 Depression (F32.9) Active confirmed Her depression is stable and mild she is compliant with her medications. She has been compliant with recent visits to mental health. Problem 04846989 Anxiety (F41.9) Active confirmed She continues with her mental health professionals to treat her anxiety and depression. She denies any suicidal ideation or intent today. Problem Obesity (933409316) Obesity, unspecified (E66.9) Active confirmed She is morbidly obese. We discussed a weight loss program to lose weight at a rate of one half of a pound per week. Problem 95512590 Other cirrhosis of liver (K74.69) Active confirmed Her synthetic and excretory functions appear to be intact. There was no jaundice. Her liver edge was not palpable. Comprehensive blood work with liver function tests were ordered. We had a long discussion about weight loss. She continues to decline referral to an obesity treatment Problem 679982627 Hirsutism (L68.0) Active confirmed Hirsutism was not observed today. Problem 869753877 Encounter for screening mammogram for malignant neoplasm of breast (Z12.31) Active confirmed An annual screening mammogram has been scheduled. Problem 76804516 HTN (hypertension) (I10) Active confirmed Her blood pressure remained stable at 132/79. We discussed sodium restriction and aggressive weight loss. Problem 375568368 Panic attack (F41.0) Active confirmed She has had no further panic attacks since her last visit. Problem 84648565 Tobacco dependence (F17.200) Active confirmed We discussed smoking cessation at length today. She is going to try to cut down by one cigarette per week. Problem 46667839 Migraines (G43.909) Active confirmed She reports no recent migraines. She is taking no medication for this. Problem Osteoporosis (78412486) Osteoporosis (M81.0) Active confirmed She was continued on her current regimen without change. A bone density has been ordered. Problem 21214030 Other and unspecified hyperlipidemia (E78.5) Active confirmed Her lipids are grossly elevated. A repeat will be done. She will be started on a statin If these values are correct. Problem 602334905 Hepatitis (K75.9) Active confirmed She continues with the GI department at [facility] for a final diagnosis. She missed an appointment after her last June. The tingling. We have referred her back to the department for ongoing evaluation. Problem 01562242 Hidradenitis (L73.2) Active confirmed The hidradeniti s has substantially resolved and is no longer a problem for this patient. Problem 417108288 Morbid obesity (E66.01) Active confirmed She remains morbidly obese. We discussed her diet. I have recommended aggressive calorie restriction and regular exercise. It is noted that she has lost 11 pounds since her last visit. He was encouraged to continue this. We discussed her weight loss strategy. Problem Ankle pain (981228162) Ankle pain (M25.579) Active confirmed She has been having pain in her [place] ankle for a couple of weeks with weightbearing. There was pain to range of motion of the metatarsal bones. End of the left ankle joint today on the examination. An x-ray was ordered and she was referred to orthopedics. Problem 24477476 Type 2 diabetes mellitus without complication, without long-term current use of insulin (E11.9) Active confirmed He is tolera ting the metformin well. Comprehensive blood work with a fasting glucose has been ordered. Problem 67224614 Closed fracture of left ankle, initial encounter (F32.833W) Active confirmed She has a chip fracture each ankle. I have sent her to orthopedics for recommendations for treatment Vital Signs Heart Rate 70 /min 08/04/2025 Temperature 97.1 degrees Fahrenheit 08/04/2025 Oximetry 97 % 01/09/2025 Blood pressure diastolic 85 mm Hg 08/04/2025 Height 61 in 08/04/2025 Blood pressure systolic 136 mm Hg 08/04/2025 Weight 228 lbs 08/04/2025 BMI 43.08 kg/m2 08/04/2025 Encounters Encounter Location Date Provider Diagnosis David Dinh III, MD [address] [place] [address] [place] [address] 08/04/2025 David Dinh Other cirrhosis of l iver K74.69 ; Type 2 diabetes mellitus without complication, without long-term current use of insulin E11.9 ; HTN (hypertension) I10 and Chest pain, unspecified type R07.9 David Dinh III, MD [address] [place] [address] [place] [address] 11/25/2024 David Dinh Other cirrhosis of l iver K74.69 ; Ankle pain M25.579 ; Other and unspecified hyperlipidemia E78.5 ; HTN (hypertension) I10 ; Migraines G43.909 ; Depression F32.9 ; Hidradenitis L73.2 ; Morbid obesity E66.01 ; Tobacco dependence F17.200 and Osteoporosis M81.0 David Dinh III, MD [address] [place] [address] [place] [id number] 12/12/2024 David Dinh Other cirrhosis of l iver K74.69 ; Closed fracture of left ankle, initial encounter S82.892A ; HTN (hypertension) I10 ; Depression F32.9 ; Migraines G43.909 ; Morbid obesity E66.01 ; Osteoporosis M81.0 and Tobacco dependence F17.200 David Dinh III, MD [address] [place] [address] [place] [id number] 01/09/2025 David Dinh Other cirrhosis of l iver K74.69 ; Morbid obesity E66.01 ; Other and unspecified hyperlipidemia E78.5 ; HTN (hypertension) I10 ; Type 2 diabetes mellitus without complication, without long-term current use of insulin E11.9 ; Depression F32.9 ; Migraines G43.909 and Osteoporosis M81.0 David Dinh III, MD [address] [place] [address] [place] [id number] 12/19/2024 David Dinh III, MD [address] [place] [address] [place] [id number] 01/10/2025 David Dinh Other cirrhosis of l iver K74.69 and Type 2 diabetes mellitus without complication, without long-term current use of insulin E11.9 David Dinh III, MD [address] [place] [address] [place] [id number] 06/12/2025 David Dinh III, MD [address] [place] [address] [place] [id number] 07/31/2025 David Dinh Assessments Encounter Date Diagnosis (ICD Code) Assessment Notes Treat ment Notes Treatment Clinical Notes 08/04/2025 Other cirrhosis of liver (ICD-10 - K74.69) Her synthetic and excretory functions appear to be intact. There was no jaundice. Her liver edge was not palpable. Comprehensive blood work with liver function tests were ordered. We had a long discussion about weight loss. She continues to decline referral to an obesity treatment 11/25/2024 Other cirrhosis of liver (ICD-10 - [...] She has been having pain in her [place] ankle for a couple of weeks with weightbearing. There was pain to range of motion of the metatarsal bones. End of the left ankle joint today on the examination. An x-ray was ordered and she was referred to orthopedics. 12/12/2024 Other cirrhosis of liver (ICD-10 - [...] her to orthopedics for recommendations for treatment 01/09/2025 Other cirrhosis of liver (ICD-10 - [...] this. We discussed her weight loss strategy. 01/10/2025 Other cirrhosis of liver (ICD-10 - [...] with a fasting glucose has been ordered. 11/25/2024 Other and unspecified hyperlipidemia (ICD-10 - E78.5) A fasting lipid profile has been ordered. 12/12/2024 HTN (hypertension) (ICD-10 - I10) Her blood pressure is currently stable. She has been compliant with her medication. 01/09/2025 Other and unspecified hyperlipidemia (ICD-10 - E78.5) Her lipids are grossly elevated. A repeat will be done. She will be started on a statin If these values are correct. 01/10/2025 Type 2 diabetes mellitus without complication, without long-term current use of insulin (ICD-10 - E11.9) He is tolerating the metformin well. Comprehensive blood work with a fasting glucose has been ordered. 08/04/2025 HTN (hypertension) (ICD-10 - I10) 11/25/2024 HTN (hypertension) (ICD-10 - I10) Her blood pressure is currently stable. She has been compliant with her medication. 12/12/2024 Depression (ICD-10 - F32.9) Her depression is stable and mild she is compliant with her medications. She has been compliant with recent visits to mental health. 01/09/2025 HTN (hypertension) (ICD-10 - I10) Her blood pressure remained stable at 132/79. We discussed sodium restriction and aggressive weight loss. 08/04/2025 Chest pain, unspecified type (ICD-10 - R07.9) 11/25/2024 Migraines (ICD-10 - G43.909) She reports no recent migraines. She is taking no medication for this. 12/12/2024 Migraines (ICD-10 - G43.909) She reports no recent migraines. She is taking no medication for this. 01/09/2025 Type 2 diabetes mellitus without complication, without long-term current use of insulin (ICD-10 - E11.9) He is tolerating the metformin well. Comprehensive blood work with a fasting glucose has been ordered. 11/25/2024 Depression (ICD-10 - F32.9) Her depression is stable and mild she is compliant with her medications. She has been compliant with recent visits to mental health. 12/12/2024 Morbid obesity (ICD-10 - E66.01) She remains morbidly obese. We discussed her diet. I have recommended aggressive calorie restriction and regular exercise. It is noted that she has lost 11 pounds since her last visit. He was encouraged to continue this. We discussed her weight loss strategy. 01/09/2025 Depression (ICD-10 - F32.9) Her depression is stable and mild she is compliant with her medications. She has been compliant with recent visits to mental health. 11/25/2024 Hidradenitis (ICD-10 - L73.2) The hidradenitis has substantially resolved and is no longer a problem for this patient. 12/12/2024 Osteoporosis (ICD-10 - M81.0) She was continued on her current regimen without change. A bone density has been ordered. 01/09/2025 Migraines (ICD-10 - G43.909) She reports no recent migraines. She is taking no medication for this. 11/25/2024 Morbid obesity (ICD-10 - E66.01) She remains morbidly obese. We discussed her diet. I have recommended aggressive calorie restriction and regular exercise. It is noted that she has lost 11 pounds since her last visit. He was encouraged to continue this. We discussed her weight loss strategy. 12/12/2024 Tobacco dependence (ICD-10 - F17.200) We discussed smoking cessation at length today. She is going to try to cut down by one cigarette per week. 01/09/2025 Osteoporosis (ICD-10 - M81.0) She was continued on her current regimen without change. A bone density has been ordered. 11/25/2024 Tobacco dependence (ICD-10 - F17.200) We discussed smoking cessation at length today. She is going to try to cut down by one cigarette per week. 11/25/2024 Osteoporosis (ICD-10 - M81.0) She was continued on her current regimen without change. A bone density has been ordered. Plan Of Treatment Pending Test Test Name Order Date PROFILE, FASTING (COMPREHENSIVE METABOLI C) 03/22/2021 PROFILE, FASTING (COMPREHENSIVE METABOLI C) 11/25/2024 PROFILE, FASTING (COMPREHENSIVE METABOLI C) 01/04/2021 PROFILE, FASTING (COMPREHENSIVE METABOLI C) 10/27/2022 PROFILE, FASTING (COMPREHENSIVE METABOLI C) 01/09/2025 PROFILE, FASTING (COMPREHENSIVE METABOLI C) 04/29/2022 PROFILE, FASTING (COMPREHENSIVE METABOLI C) 12/12/2024 PROFILE, RANDOM (COMPREHENSIVE METABOLIC ) 03/02/2022 PROFILE, RANDOM (COMPREHENSIVE METABOLIC ) 04/26/2022 PROFILE, RANDOM (COMPREHENSIVE METABOLIC ) 12/30/2021 LIPID PANEL 01/04/2021 LIPID PANEL 10/27/2022 LIPID PANEL 04/29/2022 LIPID PANEL 04/26/2022 GPT (ALT) 10/12/2018 GGT 12/30/2021 GGT 04/26/2022 GGT 01/09/2025 GGT 10/27/2022 GGT 04/29/2022 GGT 03/02/2022 GGT 03/22/2021 LDH 04/26/2022 LDH 03/02/2022 TSH (THYROID STIMULATING HORMONE) 2020 FERRITIN 03/02/2022 CBC w DIFF 12/12/2024 CBC w DIFF 12/30/2021 CBC w DIFF 01/09/2025 CBC w DIFF 03/02/2022 CBC w DIFF 04/26/2022 CBC w DIFF 01/04/2021 CBC w DIFF 04/29/2022 CBC w DIFF 04/26/2013 CBC w DIFF 11/25/2024 CBC w DIFF 03/22/2021 SED RATE (ESR) 10/27/2022 SED RATE (ESR) 04/26/2022 ALPHA-FETOPROTEIN,TUMOR MARKER ROUTINE CULTURE 03/22/2021 ROUTINE CULTURE 04/26/2022 XR CHEST 2 VIEW PA & LAT 08/04/2025 XR HAND LT 11/25/2024 XR HAND RT 11/25/2024 BONE DENSITY DEXA 07/11/2022 Lipid Panel 12/12/2024 Lipid Panel 03/22/2021 Lipid Panel 12/30/2021 Lipid Panel 01/09/2025 Microalbumin, Random 12/12/2024 ECG 12 lead EKG 08/04/2025 XR ankle LT 2V 11/25/2024 XR chest 2V 08/04/2025 XR wrist LT min 3V 11/25/2024 XR wrist RT min 3V 11/25/2024 Hemoglobin A1c 12/12/2024 Next Appt Details Provider Name:David Naranjo Fabrizio , 08/11/2025 03:00:00 PM, [address] [place] [address] , [place], [place], [phone], Provider Name:David Covarrubiasrne , 11/27/2025 09:30:00 AM, [address] [place] [address] [address] [place], [place], [address], Insurance Providers Payer Name Payer Address Payer Phone Subscriber Number Group Number Insured Name Patient Relationship to Insured Coverage Start Date Coverage End Date MEDICARE NGS [address] [place] [address] [id number] Eliana Franklin Self - patient is the insured [place] [address] [place], [place] [id number] Eliana Franklin Self - patient is the insured Medical (General) History Medical History History ICD Code obesity migraines panic attacks anxiety depression hyperlipidemia ovarian cyst removed 1995 tensosynovitis trichomonas 2006 hammer toes smoker degenerative joint disease first metatar todd joint hidradenitis elevated alkaline phosphatase right breast mass, benign, 09/2015 Surgical History Surgery Date(Month/Year) negative biopsy right breast 09/2015 ovarian cystectomy 1995 [facility]WAL[facility]/BSO cholecystectomy tonsillectomy and adenoidectomy Hospitalization History Reason Date(Month/Year) hysterectomy 2005 ovarian cystectomy 1995
== END 2025-08-04 14:53 | disposition home or self-care (01) ==
LOC: HO.XRAY 14:52
PROVIDERS: PCP Internal Medicine Medical Oncology; Visit Provider Internal Medicine Medical Oncology
DX: E11.9 Type 2 diabetes mellitus without complications (principal)
CPT/HCPCS: 71046; 93005

== ENCOUNTER → 2025-08-04 14:59 | Outpatient (BNV) | payer MEDICARE, MEDICAID, SELFPAY | PROVIDERS: PCP Internal Medicine Medical Oncology; Visit Provider Internal Medicine Cardiovascular Disease | DX: R94.31 Abnormal electrocardiogram [ECG] [EKG] (principal); E11.9 Type 2 diabetes mellitus without complications | CPT/HCPCS: 93010 ==

== ENCOUNTER → 2025-08-04 15:21 | Outpatient (BNV) | payer MEDICARE, MEDICAID, SELFPAY | PROVIDERS: PCP Internal Medicine Medical Oncology; Visit Provider Radiology Diagnostic Radiology | DX: I51.7 Cardiomegaly (principal) | CPT/HCPCS: 71046 ==